=== PATIENT | female | born 1985 | race Asian ===

== ENCOUNTER 2016-03-26 18:45 | Inpatient (IN) | payer MEDICAID ==
[~2016-03-26] VITALS: Ht 144.8 cm; Wt 60.0 kg
[2016-03-26 18:45] VITALS: BP 139/94
[~2016-03-26 18:45] MED LIST: IBUP-2070 PO; LURA40 PO; PREN90 PO
[2016-03-26] MEDS ORDERED: DEXTROSE 50%-WATER 25 GM/50 ML SYRINGE IVP PRN (21:00)
[2016-03-26] MEDS: DiphenhydrAMINE HCL 25 MG CAPSULE PO SCH (21:53)
[2016-03-26] MEDS: LURASIDONE HCL 40 MG TABLET PO SCH (21:53)
[2016-03-26] MEDS ORDERED: ChlorproMAZINE HCL 100 MG TABLET PO PRN (23:45)
[2016-03-26] MEDS ORDERED: LORazepam 2 MG TABLET PO PRN (23:45)
[2016-03-26] MEDS ORDERED: ZOLPIDEM TARTRATE 5 MG TABLET PO PRN (23:45)
[2016-03-27 07:18] LABS: BASOPHILS # (AUTO) 0.04 K/uL (0.00-0.20); BASOPHILS % (AUTO) 0.3 % (0.0-2.0); EOSINOPHILS # (AUTO) 0.41 K/uL (0.00-0.70); EOSINOPHILS % (AUTO) 3.14 % (1.0-6.0); HEMATOCRIT 30.8 % (36-46); HEMOGLOBIN 9.9 g/dL (12.0-16.0); LYMPHOCYTES # (AUTO) 1.7 K/uL (1.0-4.8); LYMPHOCYTES % (AUTO) 13.1 % (22.0-44.0); MEAN CORPUSCULAR HEMOGLOBIN 23.5 pg (26.0-34.0); MEAN CORPUSCULAR VOLUME 73 fL (80-100); MONOCYTES # (AUTO) 0.7 K/uL (0.1-1.0); MONOCYTES % (AUTO) 5.2 % (2.0-9.0); NEUTROPHILS # (AUTO) 10.2 K/uL (1.8-7.7); NEUTROPHILS % (AUTO) 78.2 % (40.0-70.0); PLATELET COUNT (AUTO) 228 K/uL (150-450); RED CELL DISTRIBUTION WIDTH 14.8 % (11.5-14.5)
[2016-03-27 07:25] LABS: RBC MORPHOLOGY COMMENT ABNORMAL RBC MORPH
[2016-03-27 07:31] LABS: ALANINE AMINOTRANSFERASE 21 U/L (12-78); ANION GAP 8 mmol/L (8-16); ASPARTATE AMINOTRANSFERASE 20 U/L (15-37); CARBON DIOXIDE 26 mmol/L (22-29); CHLORIDE 105 mmol/L (98-107); GLOMERULAR FILTR. RATE CALC > 60 mL/min (>60); SODIUM SERUM 139 mmol/L (136-145); UREA NITROGEN, BLOOD 5 mg/dL (7-18)
[2016-03-27 07:45] LABS: BILIRUBIN,TOTAL 0.1 mg/dL (0.1-1.0)
[2016-03-27] MEDS: LURASIDONE HCL 40 MG TABLET PO SCH ×2 (08:18→20:09)
[2016-03-27 13:03] VITALS: BP 120/94
[2016-03-27 15:36] LABS: GLUCOSE,POINT OF CARE 93 MG/DL (70-110)
[2016-03-27] MEDS ORDERED: ACETAMINOPHEN 325 MG TABLET PO PRN (17:15)
[2016-03-27] MEDS ORDERED: IBUPROFEN 600 MG TABLET PO PRN (17:15)
[2016-03-27] MEDS: DiphenhydrAMINE HCL 25 MG CAPSULE PO SCH (20:09)
[2016-03-27 22:10] VITALS: BP 118/81
[2016-03-28 05:26] LABS: GLUCOSE,POINT OF CARE 147 MG/DL (70-110)
[2016-03-28 05:48] VITALS: BP 126/89
[2016-03-28] MEDS: LURASIDONE HCL 40 MG TABLET PO SCH ×2 (06:35→21:41)
[2016-03-28] MEDS: INSULIN ASPART 100 UNITS/ML SQ PRN (06:47)
[2016-03-28 08:00] VITALS: BP 140/73
[2016-03-28 11:00] VITALS: BP 132/72
[2016-03-28 17:16] VITALS: BP 131/79
[2016-03-28 17:37] LABS: GLUCOSE,POINT OF CARE 140 MG/DL (70-110)
[2016-03-28] MEDS: DiphenhydrAMINE HCL 25 MG CAPSULE PO SCH (21:41)
[2016-03-29 05:36] LABS: GLUCOSE,POINT OF CARE 107 MG/DL (70-110)
[2016-03-29] MEDS: INSULIN ASPART 100 UNITS/ML SQ PRN (06:35)
[2016-03-29] MEDS: LURASIDONE HCL 40 MG TABLET PO SCH ×2 (06:53→21:00)
[2016-03-29 08:20] VITALS: BP 137/86
[2016-03-29 16:52] LABS: GLUCOSE COMMENT 1 Received Meds; GLUCOSE,POINT OF CARE 135 MG/DL (70-110)
[2016-03-29 19:01] VITALS: BP 133/79
[2016-03-29] MEDS: DiphenhydrAMINE HCL 25 MG CAPSULE PO SCH (21:00)
[2016-03-30 05:36] LABS: GLUCOSE,POINT OF CARE 100 MG/DL (70-110)
[2016-03-30] MEDS: LURASIDONE HCL 40 MG TABLET PO SCH ×2 (07:02→21:20)
[2016-03-30] MEDS: INSULIN ASPART 100 UNITS/ML SQ PRN ×2 (07:03→17:40)
[2016-03-30 08:07] VITALS: BP 145/87
[2016-03-30 16:10] VITALS: BP 144/94
[2016-03-30] MEDS: DiphenhydrAMINE HCL 25 MG CAPSULE PO SCH (21:20)
[2016-03-31 05:21] LABS: GLUCOSE,POINT OF CARE 137 MG/DL (70-110)
[2016-03-31] MEDS: LURASIDONE HCL 40 MG TABLET PO SCH ×2 (06:33→20:40)
[2016-03-31 12:56] VITALS: BP 145/91
[2016-03-31] MEDS: INSULIN ASPART 100 UNITS/ML SQ PRN (17:30)
[2016-03-31 18:39] VITALS: BP 145/92
[2016-03-31] MEDS: DiphenhydrAMINE HCL 25 MG CAPSULE PO SCH (20:40)
[2016-04-01 05:47] LABS: GLUCOSE,POINT OF CARE 98 MG/DL (70-110)
[2016-04-01] MEDS: LURASIDONE HCL 40 MG TABLET PO SCH ×2 (06:32→21:09)
[2016-04-01 10:27] VITALS: BP 117/75
[2016-04-01 16:51] LABS: GLUCOSE,POINT OF CARE 106 MG/DL (70-110)
[2016-04-01 17:20] VITALS: BP 132/64
[2016-04-01] MEDS: DiphenhydrAMINE HCL 25 MG CAPSULE PO SCH (21:09)
[2016-04-02 05:36] LABS: GLUCOSE,POINT OF CARE 97 MG/DL (70-110)
[2016-04-02] MEDS: LURASIDONE HCL 40 MG TABLET PO SCH ×2 (06:56→20:20)
[2016-04-02] MEDS: INSULIN ASPART 100 UNITS/ML SQ PRN (06:56)
[2016-04-02 12:22] LABS: GLUCOSE,POINT OF CARE 156 MG/DL (70-110)
[2016-04-02 12:22] LABS: GLUCOSE,POINT OF CARE 146 MG/DL (70-110)
[2016-04-02 12:28] LABS: GLUCOSE,POINT OF CARE 117 MG/DL (70-110)
[2016-04-02 17:19] VITALS: BP 129/84
[2016-04-02 17:26] LABS: GLUCOSE,POINT OF CARE 100 MG/DL (70-110)
[2016-04-02] MEDS: DiphenhydrAMINE HCL 25 MG CAPSULE PO SCH (20:20)
[2016-04-03 05:32] LABS: GLUCOSE,POINT OF CARE 112 MG/DL (70-110)
[2016-04-03] MEDS: LURASIDONE HCL 40 MG TABLET PO SCH ×2 (06:52→21:02)
[2016-04-03] MEDS: INSULIN ASPART 100 UNITS/ML SQ PRN (06:56)
[2016-04-03 07:10] VITALS: BP 124/76
[2016-04-03 08:00] VITALS: BP 130/88
[2016-04-03 16:53] VITALS: BP 125/85
[2016-04-03 17:02] LABS: GLUCOSE,POINT OF CARE 150 MG/DL (70-110)
[2016-04-03] MEDS: DiphenhydrAMINE HCL 25 MG CAPSULE PO SCH (21:02)
[2016-04-04] MEDS: LURASIDONE HCL 40 MG TABLET PO SCH ×2 (06:26→20:08)
[2016-04-04 07:16] VITALS: BP 117/76
[2016-04-04 08:05] VITALS: BP 109/79
[2016-04-04 18:03] VITALS: BP 131/76
[2016-04-04] MEDS: DiphenhydrAMINE HCL 25 MG CAPSULE PO SCH (20:08)
[2016-04-05] MEDS: LURASIDONE HCL 40 MG TABLET PO SCH ×2 (06:55→20:31)
[2016-04-05 08:00] VITALS: BP 131/96
[2016-04-05 16:59] VITALS: BP 132/73
[2016-04-05] MEDS: DiphenhydrAMINE HCL 25 MG CAPSULE PO SCH (20:32)
[2016-04-06] MEDS: LURASIDONE HCL 40 MG TABLET PO SCH ×2 (06:42→20:27)
[2016-04-06 16:58] VITALS: BP 112/71
[2016-04-06] MEDS: DiphenhydrAMINE HCL 25 MG CAPSULE PO SCH (20:27)
[2016-04-07] MEDS: LURASIDONE HCL 40 MG TABLET PO SCH ×2 (06:40→20:33)
[2016-04-07 08:30] VITALS: BP 133/103
[2016-04-07 17:15] VITALS: BP 135/76
[2016-04-07] MEDS: DiphenhydrAMINE HCL 25 MG CAPSULE PO SCH (20:33)
[2016-04-08] MEDS: LURASIDONE HCL 40 MG TABLET PO SCH ×2 (06:35→20:22)
[2016-04-08 08:00] VITALS: BP 121/69
[2016-04-08] MEDS: DiphenhydrAMINE HCL 25 MG CAPSULE PO SCH (20:22)
[2016-04-09] MEDS: LURASIDONE HCL 40 MG TABLET PO SCH ×2 (06:34→20:14)
[2016-04-09 08:05] VITALS: BP 116/57
[2016-04-09 17:41] VITALS: BP 125/77
[2016-04-09] MEDS: DiphenhydrAMINE HCL 25 MG CAPSULE PO SCH (20:14)
[2016-04-10] MEDS: LURASIDONE HCL 40 MG TABLET PO SCH ×2 (06:55→20:26)
[2016-04-10 08:05] VITALS: BP 128/96
[2016-04-10 16:23] VITALS: BP 123/83
[2016-04-10] MEDS: DiphenhydrAMINE HCL 25 MG CAPSULE PO SCH (20:25)
[2016-04-11] MEDS: LURASIDONE HCL 40 MG TABLET PO SCH ×2 (06:55→20:24)
[2016-04-11 10:06] VITALS: BP 128/86
[2016-04-11 17:22] VITALS: BP 128/86
[2016-04-11] MEDS: DiphenhydrAMINE HCL 25 MG CAPSULE PO SCH (20:24)
[2016-04-12] MEDS: LURASIDONE HCL 40 MG TABLET PO SCH ×2 (06:40→20:19)
[2016-04-12 08:05] VITALS: BP 120/78
[2016-04-12 16:40] VITALS: BP 129/89
[2016-04-12] MEDS: DiphenhydrAMINE HCL 25 MG CAPSULE PO SCH (20:18)
[2016-04-13] MEDS: LURASIDONE HCL 40 MG TABLET PO SCH ×2 (06:51→20:57)
[2016-04-13 08:00] VITALS: BP 131/69
[2016-04-13 16:22] VITALS: BP 121/75
[2016-04-13] MEDS: DiphenhydrAMINE HCL 25 MG CAPSULE PO SCH (20:56)
[2016-04-14] MEDS: LURASIDONE HCL 80 MG TABLET PO SCH ×2 (07:02→21:52)
[2016-04-14 08:00] VITALS: BP 128/97
[2016-04-14 17:13] VITALS: BP 139/72
[2016-04-14] MEDS: DiphenhydrAMINE HCL 25 MG CAPSULE PO SCH (21:52)
[2016-04-15] MEDS: LURASIDONE HCL 80 MG TABLET PO SCH ×2 (06:56→20:24)
[2016-04-15 08:44] VITALS: BP 121/72
[2016-04-15 17:10] VITALS: BP 132/76
[2016-04-15] MEDS: DiphenhydrAMINE HCL 25 MG CAPSULE PO SCH (20:23)
[2016-04-16] MEDS: LURASIDONE HCL 80 MG TABLET PO SCH ×2 (06:37→20:25)
[2016-04-16 08:05] VITALS: BP 109/54
[2016-04-16 16:32] VITALS: BP 115/69
[2016-04-16] MEDS: DiphenhydrAMINE HCL 25 MG CAPSULE PO SCH (20:25)
[2016-04-17] MEDS: LURASIDONE HCL 80 MG TABLET PO SCH ×2 (06:37→20:22)
[2016-04-17 08:07] VITALS: BP 110/65
[2016-04-17 16:19] VITALS: BP 126/79
[2016-04-17] MEDS: DiphenhydrAMINE HCL 25 MG CAPSULE PO SCH (20:21)
[2016-04-18] MEDS: LURASIDONE HCL 80 MG TABLET PO SCH ×2 (06:38→20:24)
[2016-04-18 08:07] VITALS: BP 123/85
[2016-04-18 16:00] VITALS: BP 141/95
[2016-04-18] MEDS: DiphenhydrAMINE HCL 25 MG CAPSULE PO SCH (20:24)
[2016-04-19] MEDS: LURASIDONE HCL 80 MG TABLET PO SCH (06:34)
[2016-04-19 08:00] VITALS: BP 121/79
[2016-04-19 16:21] VITALS: BP 101/58
[2016-04-19] MEDS: DiphenhydrAMINE HCL 25 MG CAPSULE PO SCH (21:32)
[2016-04-20] MEDS: LURASIDONE HCL 80 MG TABLET PO SCH ×2 (06:43→20:33)
[2016-04-20 08:00] VITALS: BP 120/81
[2016-04-20 17:35] VITALS: BP 126/81
[2016-04-20] MEDS: DiphenhydrAMINE HCL 25 MG CAPSULE PO SCH (20:32)
[2016-04-21] MEDS: LURASIDONE HCL 80 MG TABLET PO SCH ×2 (06:48→20:57)
[2016-04-21 08:00] VITALS: BP 115/72
[2016-04-21 16:28] VITALS: BP 128/79
[2016-04-21] MEDS: DiphenhydrAMINE HCL 25 MG CAPSULE PO SCH (20:56)
[2016-04-22] MEDS: LURASIDONE HCL 80 MG TABLET PO SCH ×2 (06:45→20:47)
[2016-04-22 09:58] VITALS: BP 122/76
[2016-04-22 16:37] VITALS: BP 145/89
[2016-04-22] MEDS: DiphenhydrAMINE HCL 25 MG CAPSULE PO SCH (20:47)
[2016-04-23] MEDS: LURASIDONE HCL 80 MG TABLET PO SCH ×2 (06:42→20:29)
[2016-04-23 08:07] VITALS: BP 134/85
[2016-04-23 19:42] VITALS: BP 132/85
[2016-04-23] MEDS: DiphenhydrAMINE HCL 25 MG CAPSULE PO SCH (20:29)
[2016-04-24] MEDS: LURASIDONE HCL 80 MG TABLET PO SCH ×2 (06:39→20:54)
[2016-04-24 09:43] VITALS: BP 121/68
[2016-04-24 10:44] VITALS: BP 122/73
[2016-04-24 17:12] VITALS: BP 138/94
[2016-04-24] MEDS: DiphenhydrAMINE HCL 25 MG CAPSULE PO SCH (20:54)
[2016-04-25 06:46] LABS: BASOPHILS % (AUTO) 0.4 % (0.0-2.0); EOSINOPHILS % (AUTO) 2.4 % (1.0-6.0); HEMATOCRIT 35.4 % (36-46); HEMOGLOBIN 10.8 g/dL (12.0-16.0); LYMPHOCYTES # (AUTO) 2.3 K/uL (1.0-4.8); LYMPHOCYTES % (AUTO) 26.6 % (22.0-44.0); MEAN CORPUSCULAR HEMOGLOBIN 22.2 pg (26.0-34.0); MEAN CORPUSCULAR HGB CONC 30.6 G/dL (31.0-37.0); MEAN CORPUSCULAR VOLUME 73 fL (80-100); MONOCYTES # (AUTO) 0.5 K/uL (0.1-1.0); MONOCYTES % (AUTO) 6.2 % (2.0-9.0); NEUTROPHILS # (AUTO) 5.5 K/uL (1.8-7.7); NEUTROPHILS % (AUTO) 64.4 % (40.0-70.0); PLATELET COUNT (AUTO) 383 K/uL (150-450); RED BLOOD CELL COUNT(AUTO) 4.87 MIL/uL (4.00-5.20); RED CELL DISTRIBUTION WIDTH 13.4 % (11.5-14.5); WHITE BLOOD COUNT (AUTO) 8.5 K/uL (4.5-11.0)
[2016-04-25] MEDS: LURASIDONE HCL 80 MG TABLET PO SCH ×2 (07:01→20:28)
[2016-04-25 08:31] LABS: RBC MORPHOLOGY COMMENT ABNORMAL RBC MORPH
[2016-04-25 10:19] VITALS: BP 124/80
[2016-04-25 17:06] VITALS: BP 121/72
[2016-04-25] MEDS: DiphenhydrAMINE HCL 25 MG CAPSULE PO SCH (20:28)
[2016-04-26 06:25] VITALS: BP 118/79
[2016-04-26] MEDS: LURASIDONE HCL 80 MG TABLET PO SCH ×2 (07:08→20:10)
[2016-04-26 08:00] VITALS: BP 135/83
[2016-04-26 16:00] VITALS: BP 136/89
[2016-04-26] MEDS: DiphenhydrAMINE HCL 25 MG CAPSULE PO SCH (20:11)
[2016-04-27] MEDS: LURASIDONE HCL 80 MG TABLET PO SCH ×2 (06:55→20:26)
[2016-04-27 10:02] VITALS: BP 123/80
[2016-04-27 16:00] VITALS: BP 133/87
[2016-04-27] MEDS: DiphenhydrAMINE HCL 25 MG CAPSULE PO SCH (20:26)
[2016-04-28] MEDS: LURASIDONE HCL 80 MG TABLET PO SCH ×2 (06:34→20:53)
[2016-04-28 08:00] VITALS: BP 137/78
[2016-04-28 16:23] VITALS: BP 135/82
[2016-04-28] MEDS: DiphenhydrAMINE HCL 25 MG CAPSULE PO SCH (20:53)
[2016-04-29 06:28] VITALS: BP 129/78
[2016-04-29] MEDS: LURASIDONE HCL 80 MG TABLET PO SCH ×2 (07:03→21:30)
[2016-04-29 08:33] VITALS: BP 123/68
[2016-04-29 20:18] VITALS: BP 121/75
[2016-04-29] MEDS: DiphenhydrAMINE HCL 25 MG CAPSULE PO SCH (21:30)
[2016-04-30 02:39] VITALS: BP 132/75
[2016-04-30] MEDS: LURASIDONE HCL 80 MG TABLET PO SCH ×2 (06:56→20:10)
[2016-04-30 08:00] VITALS: BP 132/85
[2016-04-30] MEDS ORDERED: DEPOP150I IM (14:38)
[2016-04-30] MEDS ORDERED: DIPH50 PO (14:38)
[2016-04-30] MEDS ORDERED: LURA80 PO ×2 (14:38)
[2016-04-30 16:59] VITALS: BP 126/77
[2016-04-30] MEDS: DiphenhydrAMINE HCL 25 MG CAPSULE PO SCH (20:10)
[2016-05-01] MEDS: LURASIDONE HCL 80 MG TABLET PO SCH (06:52)
[2016-05-01 08:30] VITALS: BP 123/71
== END 2016-05-01 12:10 | disposition home or self-care (01) | DRG 750 ==
LOC: 3EI 18:45
PROVIDERS: ADMIT Psychiatry & Neurology Psychiatry; ATTEND Psychiatry & Neurology Psychiatry
DX: F20.0 Paranoid schizophrenia (principal); O24.13 Pre-existing type 2 diabetes mellitus, in the puerperium; E11.9 Type 2 diabetes mellitus without complications; F79 Unspecified intellectual disabilities; F12.90 Cannabis use, unspecified, uncomplicated; D64.9 Anemia, unspecified; O90.81 Anemia of the puerperium; R03.0 Elevated blood-pressure reading, without diagnosis of hypertension; G47.00 Insomnia, unspecified; Z91.14 Patient's other noncompliance with medication regimen
CPT/HCPCS: 82962; 87081; J1050

== ENCOUNTER 2018-05-21 14:31 | Inpatient (IN) | payer MEDICAID, OTHER ==
[~2018-05-21] VITALS: Ht 152.4 cm; Wt 55.2 kg
[~2018-05-21 14:31] MED LIST changes: +DEPOP150I IM; +DIPH50 PO; -IBUP-2070 PO; -LURA40 PO; +LURA80 PO; -PREN90 PO
[2018-05-21 16:23] LABS: BASOPHILS % (AUTO) 0.7 % (0.0-2.0); EOSINOPHILS % (AUTO) 0.2 % (1.0-6.0); HEMATOCRIT 44.5 % (36-46); HEMOGLOBIN 14.2 g/dL (12.0-16.0); LYMPHOCYTES # (AUTO) 1.6 K/uL (1.0-4.8); LYMPHOCYTES % (AUTO) 9.3 % (22.0-44.0); MEAN CORPUSCULAR HGB CONC 31.9 G/dL (31.0-37.0); MEAN CORPUSCULAR VOLUME 69 fL (80-100); MONOCYTES # (AUTO) 0.7 K/uL (0.1-1.0); MONOCYTES % (AUTO) 3.8 % (2.0-9.0); NEUTROPHILS # (AUTO) 14.8 K/uL (1.8-7.7); PLATELET COUNT (AUTO) 343 K/uL (150-450); RED BLOOD CELL COUNT(AUTO) 6.44 MIL/uL (4.00-5.20); RED CELL DISTRIBUTION WIDTH 13.8 % (11.5-14.5)
[2018-05-21 16:24] LABS: ANION GAP 16 mmol/L (8-16); CALCIUM, TOTAL 9.3 mg/dL (8.8-10.5); CARBON DIOXIDE 21 mmol/L (22-29); CHLORIDE 95 mmol/L (98-107); CREATININE 0.78 mg/dL (0.60-1.30); GLOMERULAR FILTR. RATE CALC > 60 mL/min (>60); GLUCOSE,RANDOM 307 mg/dL (70-110); SODIUM SERUM 132 mmol/L (136-145); UREA NITROGEN, BLOOD 9 mg/dL (7-18)
[2018-05-21] MEDS ORDERED: HALO5I IM (16:26)
[2018-05-21 16:32] LABS: ALANINE AMINOTRANSFERASE 16 U/L (12-78); ALBUMIN 3.7 g/dL (3.4-5.0); ALKALINE PHOSPHATASE 112 U/L (46-116); ASPARTATE AMINOTRANSFERASE 12 U/L (15-37); BILIRUBIN,TOTAL 0.3 mg/dL (0.1-1.0); TOTAL PROTEIN, SERUM 7.9 g/dL (6.4-8.2)
[2018-05-21 16:33] LABS: AMPHET/METH SCREEN,URINE NEGATIVE (NEGATIVE); BARBITURATE SCREEN, URINE NEGATIVE (NEGATIVE); BENZODIAZEPINES SCREEN,URINE NEGATIVE (NEGATIVE); CANNABINOID SCREEN,URINE NEGATIVE (NEGATIVE); COCAINE SCREEN,URINE NEGATIVE (NEGATIVE); METHADONE SCREEN, URINE NEGATIVE (NEGATIVE); OPIATE SCREEN,URINE NEGATIVE (NEGATIVE)
[2018-05-21 16:34] LABS: PHENCYCLIDINE SCREEN,URINE NEGATIVE (NEGATIVE)
[2018-05-21] MEDS ORDERED: BACITRACIN 0.9 GM PACKET OINTMENT TP ONE (19:15)
[2018-05-21] MEDS ORDERED: AMOX TR/POT CLAV 875 MG/125 MG TABLET PO ONE (19:15)
[2018-05-21] MEDS ORDERED: BACITRACIN/POLYMYXIN B 15 GM OINTMENT TP ONE (19:15)
[2018-05-21] MEDS ORDERED: LORazepam 2 MG TABLET PO PRN (19:45)
[2018-05-21] MEDS ORDERED: ChlorproMAZINE HCL 100 MG TABLET PO PRN (19:45)
[2018-05-21 20:30] LABS: HCG,QUANTITATIVE < 1 mIU/mL (0-6)
[2018-05-21] MEDS: DiphenhydrAMINE HCL 25 MG CAPSULE PO SCH (21:23)
[2018-05-21] MEDS: HALOPERIDOL 5 MG TABLET PO SCH (21:23)
[2018-05-21 23:36] VITALS: BP 109/69
[2018-05-21 23:54] LABS: GLUCOSE,POINT OF CARE 314 MG/DL (70-110)
[2018-05-22] MEDS ORDERED: PNEUMOCOCCAL VACCINE POLYVALENT 0.5 ML VIAL [PPSV23] IM ONE (01:00)
[2018-05-22 05:19] LABS: GLUCOSE,POINT OF CARE 299 MG/DL (70-110)
[2018-05-22 05:52] LABS: HEMOGLOBIN A1C 10.8 % (4.5-6.2)
[2018-05-22 06:15] LABS: FREE T4 (FREE THYROXINE) 1.15 ng/dL (0.76-1.46); THYROID STIMULATING HORMONE 2.71 uIU/mL (0.36-3.74)
[2018-05-22] MEDS ORDERED: DEXTROSE 50%-WATER 25 GM/50 ML SYRINGE IVP PRN (06:30)
[2018-05-22] MEDS: INSULIN LISPRO 100 UNITS/ML SQ PRN ×4 (06:46→21:15)
[2018-05-22 08:45] VITALS: BP 104/68
[2018-05-22] MEDS ORDERED: CloNIDine HCL 0.1 MG TABLET PO PRN (09:15)
[2018-05-22] MEDS ORDERED: ALBUTEROL SULFATE HFA 90 MCG/PUFF 8 GM INHALER IH PRN (09:15)
[2018-05-22] MEDS ORDERED: ACETAMINOPHEN 325 MG TABLET PO PRN (09:15)
[2018-05-22] MEDS ORDERED: PETROLATUM,WHITE 71 GM JELLY TP PRN (09:15)
[2018-05-22] MEDS ORDERED: MAGNESIUM HYDROXIDE SUSPENSION 30 ML UDCUP PO PRN (09:15)
[2018-05-22] MEDS ORDERED: ONDANSETRON HCL 4 MG TABLET PO PRN (09:15)
[2018-05-22] MEDS ORDERED: LOPERAMIDE HCL 2 MG CAPSULE PO PRN (09:15)
[2018-05-22] MEDS ORDERED: MAG HYDROX/AL HYDROX/SIMETH ES 30 ML SUSPENSION UDCUP PO PRN (09:15)
[2018-05-22] MEDS ORDERED: BENZOCAINE/MENTHOL LOZENGE MM PRN (09:15)
[2018-05-22 11:39] LABS: GLUCOSE,POINT OF CARE 338 MG/DL (70-110)
[2018-05-22 17:49] LABS: GLUCOMETER DEV NAME(LOC) AHU.; GLUCOSE,POINT OF CARE 412 MG/DL (70-110)
[2018-05-22 19:16] VITALS: BP 110/73
[2018-05-22] MEDS ORDERED: INSULIN LISPRO 100 UNITS/ML SQ ONE (19:45)
[2018-05-22] MEDS ORDERED: HALO100V4 IM (19:49)
[2018-05-22] MEDS ORDERED: DIPH25 PO (19:49)
[2018-05-22] MEDS: HALOPERIDOL 5 MG TABLET PO SCH (21:08)
[2018-05-22] MEDS: DiphenhydrAMINE HCL 25 MG CAPSULE PO SCH (21:09)
[2018-05-22 21:19] LABS: GLUCOMETER DEV NAME(LOC) 3EX.; GLUCOSE,POINT OF CARE 317 MG/DL (70-110)
[2018-05-23 00:10] VITALS: BP 122/73
[2018-05-23 05:39] LABS: GLUCOMETER DEV NAME(LOC) 3EX.; GLUCOSE,POINT OF CARE 294 MG/DL (70-110)
[2018-05-23] MEDS: INSULIN LISPRO 100 UNITS/ML SQ PRN ×4 (06:52→21:08)
[2018-05-23] MEDS: DOCUSATE SODIUM 100 MG CAPSULE PO SCH (08:35)
[2018-05-23] MEDS: OMEPRAZOLE 20 MG CAPSULE PO SCH (08:35)
[2018-05-23 09:39] VITALS: BP 116/68
[2018-05-23 11:54] LABS: GLUCOMETER DEV NAME(LOC) 3EX.; GLUCOSE,POINT OF CARE 360 MG/DL (70-110)
[2018-05-23 16:24] LABS: GLUCOMETER DEV NAME(LOC) 3EX.; GLUCOSE,POINT OF CARE 346 MG/DL (70-110)
[2018-05-23 16:27] VITALS: BP 121/67
[2018-05-23] MEDS ORDERED: MetFORMIN HCL 500 MG TABLET PO SCH (17:30)
[2018-05-23] MEDS: HALOPERIDOL 5 MG TABLET PO SCH (20:47)
[2018-05-23] MEDS: DiphenhydrAMINE HCL 25 MG CAPSULE PO SCH (20:47)
[2018-05-23] MEDS: ZOLPIDEM TARTRATE 5 MG TABLET PO PRN (20:47)
[2018-05-23 21:39] LABS: GLUCOMETER DEV NAME(LOC) 3EX.; GLUCOSE,POINT OF CARE 299 MG/DL (70-110)
[2018-05-24] MEDS: CEPHALEXIN MONOHYDRATE 500 MG CAPSULE PO SCH ×3 (00:18→16:15)
[2018-05-24] MEDS: INSULIN LISPRO 100 UNITS/ML SQ PRN ×4 (06:06→21:25)
[2018-05-24 06:09] LABS: GLUCOMETER DEV NAME(LOC) 3EX.; GLUCOSE,POINT OF CARE 293 MG/DL (70-110)
[2018-05-24] MEDS: MetFORMIN HCL 500 MG TABLET PO SCH ×2 (06:35→17:36)
[2018-05-24 09:38] VITALS: BP 110/72
[2018-05-24] MEDS: DOCUSATE SODIUM 100 MG CAPSULE PO SCH (10:00)
[2018-05-24] MEDS: OMEPRAZOLE 20 MG CAPSULE PO SCH (10:00)
[2018-05-24 11:33] LABS: GLUCOMETER DEV NAME(LOC) 3EX.; GLUCOSE,POINT OF CARE 237 MG/DL (70-110)
[2018-05-24 16:24] LABS: GLUCOMETER DEV NAME(LOC) 3EX.; GLUCOSE,POINT OF CARE 220 MG/DL (70-110)
[2018-05-24 17:38] VITALS: BP 120/71
[2018-05-24 20:19] LABS: GLUCOMETER DEV NAME(LOC) 3EX.; GLUCOSE,POINT OF CARE 214 MG/DL (70-110)
[2018-05-24] MEDS: DiphenhydrAMINE HCL 25 MG CAPSULE PO SCH (21:15)
[2018-05-24] MEDS: HALOPERIDOL 5 MG TABLET PO SCH (21:16)
[2018-05-24] MEDS: ZOLPIDEM TARTRATE 5 MG TABLET PO PRN (21:34)
[2018-05-25] MEDS: CEPHALEXIN MONOHYDRATE 500 MG CAPSULE PO SCH ×3 (00:07→16:10)
[2018-05-25 05:50] LABS: GLUCOMETER DEV NAME(LOC) 3E.I; GLUCOSE,POINT OF CARE 225 MG/DL (70-110)
[2018-05-25] MEDS: MetFORMIN HCL 500 MG TABLET PO SCH ×2 (06:58→17:29)
[2018-05-25] MEDS: INSULIN LISPRO 100 UNITS/ML SQ PRN ×3 (07:01→17:03)
[2018-05-25] MEDS: OMEPRAZOLE 20 MG CAPSULE PO SCH (08:56)
[2018-05-25] MEDS: DOCUSATE SODIUM 100 MG CAPSULE PO SCH (08:56)
[2018-05-25] MEDS ORDERED: MULTIVITAMINS, THERAPEUTIC TABLET PO SCH (09:00)
[2018-05-25] MEDS ORDERED: HALOPERIDOL DECANOATE 50 MG/ML VIAL IM SCH (09:00)
[2018-05-25 10:26] LABS: HEMATOCRIT 42.3 % (36-46); HEMOGLOBIN 13.4 g/dL (12.0-16.0); MEAN CORPUSCULAR HGB CONC 31.8 G/dL (31.0-37.0); MEAN CORPUSCULAR VOLUME 69 fL (80-100); PLATELET COUNT (AUTO) 287 K/uL (150-450); RED BLOOD CELL COUNT(AUTO) 6.09 MIL/uL (4.00-5.20); RED CELL DISTRIBUTION WIDTH 13.9 % (11.5-14.5)
[2018-05-25 10:47] LABS: ANION GAP 11 mmol/L (8-16); CALCIUM, TOTAL 9.5 mg/dL (8.8-10.5); CARBON DIOXIDE 26 mmol/L (22-29); CHLORIDE 95 mmol/L (98-107); CREATININE 0.59 mg/dL (0.60-1.30); GLOMERULAR FILTR. RATE CALC > 60 mL/min (>60); GLUCOSE,RANDOM 217 mg/dL (70-110); PHOSPHORUS 4.8 mg/dL (2.5-4.9); POTASSIUM 4.8 mmol/L (3.5-5.1); SODIUM SERUM 132 mmol/L (136-145); UREA NITROGEN, BLOOD 13 mg/dL (7-18)
[2018-05-25 11:00] VITALS: BP 115/75
[2018-05-25 11:24] LABS: GLUCOMETER DEV NAME(LOC) 3E.I; GLUCOSE,POINT OF CARE 195 MG/DL (70-110)
[2018-05-25 11:40] LABS: BAND NEUTROPHILS % (MANUAL) 2 % (0-5); EOSINOPHILS % (MANUAL) 2 % (1-6); LYMPHOCYTES % (MANUAL) 25 % (22-44); MONOCYTES % (MANUAL) 5 % (2-9); SEGMENTED NEUTROPHILS % 66 % (40-70)
[2018-05-25] MEDS: GlipiZIDE 10 MG TABLET PO SCH (16:10)
[2018-05-25] MEDS: SODIUM CHLORIDE 1 GM TABLET PO SCH (16:10)
[2018-05-25 16:39] LABS: GLUCOMETER DEV NAME(LOC) 3E.I; GLUCOSE,POINT OF CARE 200 MG/DL (70-110)
[2018-05-25 17:14] VITALS: BP 118/76
[2018-05-25] MEDS: DiphenhydrAMINE HCL 25 MG CAPSULE PO SCH (20:20)
[2018-05-25] MEDS: HALOPERIDOL 5 MG TABLET PO SCH (20:20)
[2018-05-25 20:39] LABS: GLUCOMETER DEV NAME(LOC) 3E.I; GLUCOSE,POINT OF CARE 128 MG/DL (70-110)
[2018-05-26] MEDS: CEPHALEXIN MONOHYDRATE 500 MG CAPSULE PO SCH ×4 (00:03→23:52)
[2018-05-26 06:20] LABS: GLUCOMETER DEV NAME(LOC) 3E.I; GLUCOSE,POINT OF CARE 155 MG/DL (70-110)
[2018-05-26] MEDS: INSULIN LISPRO 100 UNITS/ML SQ PRN ×4 (06:56→21:32)
[2018-05-26] MEDS: MetFORMIN HCL 500 MG TABLET PO SCH ×2 (06:57→17:00)
[2018-05-26] MEDS: GlipiZIDE 10 MG TABLET PO SCH ×2 (06:57→16:18)
[2018-05-26 08:30] VITALS: BP 110/66
[2018-05-26] MEDS: MULTIVITAMINS WITH IRON TABLET PO SCH (08:58)
[2018-05-26] MEDS: OMEPRAZOLE 20 MG CAPSULE PO SCH (08:58)
[2018-05-26] MEDS: DOCUSATE SODIUM 100 MG CAPSULE PO SCH (08:58)
[2018-05-26] MEDS: SODIUM CHLORIDE 1 GM TABLET PO SCH ×2 (08:58→16:18)
[2018-05-26 12:24] LABS: GLUCOMETER DEV NAME(LOC) 3E.I; GLUCOSE,POINT OF CARE 168 MG/DL (70-110)
[2018-05-26 16:14] VITALS: BP 146/90
[2018-05-26 16:49] LABS: GLUCOMETER DEV NAME(LOC) 3E.I; GLUCOSE,POINT OF CARE 300 MG/DL (70-110)
[2018-05-26] MEDS: DiphenhydrAMINE HCL 25 MG CAPSULE PO SCH (20:58)
[2018-05-26] MEDS ORDERED: HALOPERIDOL 10 MG TABLET PO SCH (21:00)
[2018-05-27 01:09] VITALS: BP 104/66
[2018-05-27] MEDS: INSULIN LISPRO 100 UNITS/ML SQ PRN ×3 (06:46→17:09)
[2018-05-27] MEDS: GlipiZIDE 10 MG TABLET PO SCH ×2 (06:48→16:18)
[2018-05-27] MEDS: MetFORMIN HCL 500 MG TABLET PO SCH ×2 (06:48→16:18)
[2018-05-27 07:52] LABS: ANION GAP 12 mmol/L (8-16); CALCIUM, TOTAL 9.3 mg/dL (8.8-10.5); CARBON DIOXIDE 24 mmol/L (22-29); CHLORIDE 101 mmol/L (98-107); CREATININE 0.78 mg/dL (0.60-1.30); GLOMERULAR FILTR. RATE CALC > 60 mL/min (>60); GLUCOSE,RANDOM 199 mg/dL (70-110); POTASSIUM 4.2 mmol/L (3.5-5.1); SODIUM SERUM 137 mmol/L (136-145); UREA NITROGEN, BLOOD 11 mg/dL (7-18)
[2018-05-27 08:30] VITALS: BP 114/61
[2018-05-27] MEDS: DOCUSATE SODIUM 100 MG CAPSULE PO SCH (08:46)
[2018-05-27] MEDS: SODIUM CHLORIDE 1 GM TABLET PO SCH (08:46)
[2018-05-27] MEDS: CEPHALEXIN MONOHYDRATE 500 MG CAPSULE PO SCH ×3 (08:46→23:58)
[2018-05-27] MEDS: OMEPRAZOLE 20 MG CAPSULE PO SCH (08:46)
[2018-05-27] MEDS: MULTIVITAMINS WITH IRON TABLET PO SCH (08:47)
[2018-05-27 09:39] LABS: GLUCOMETER DEV NAME(LOC) 3E.I; GLUCOSE,POINT OF CARE 195 MG/DL (70-110)
[2018-05-27 09:50] LABS: GLUCOMETER DEV NAME(LOC) 3E.I; GLUCOSE,POINT OF CARE 216 MG/DL (70-110)
[2018-05-27 11:05] LABS: GLUCOMETER DEV NAME(LOC) 3E.I; GLUCOSE,POINT OF CARE 236 MG/DL (70-110)
[2018-05-27 16:00] VITALS: BP 116/66
[2018-05-27 16:10] LABS: GLUCOMETER DEV NAME(LOC) 3E.I; GLUCOSE,POINT OF CARE 218 MG/DL (70-110)
[2018-05-27] MEDS: DiphenhydrAMINE HCL 25 MG CAPSULE PO SCH (20:11)
[2018-05-27 20:32] LABS: GLUCOMETER DEV NAME(LOC) 3E.I; GLUCOSE,POINT OF CARE 134 MG/DL (70-110)
[2018-05-27] MEDS ORDERED: HALOPERIDOL 10 MG TABLET PO SCH (21:00)
[2018-05-28 05:56] LABS: GLUCOMETER DEV NAME(LOC) 3E.I; GLUCOSE,POINT OF CARE 163 MG/DL (70-110)
[2018-05-28] MEDS: MetFORMIN HCL 500 MG TABLET PO SCH ×2 (07:02→16:57)
[2018-05-28] MEDS: GlipiZIDE 10 MG TABLET PO SCH ×2 (07:02→16:57)
[2018-05-28] MEDS: INSULIN LISPRO 100 UNITS/ML SQ PRN ×3 (07:13→22:05)
[2018-05-28 08:30] VITALS: BP 106/61
[2018-05-28] MEDS: MULTIVITAMINS WITH IRON TABLET PO SCH (08:34)
[2018-05-28] MEDS: DOCUSATE SODIUM 100 MG CAPSULE PO SCH (08:34)
[2018-05-28] MEDS: OMEPRAZOLE 20 MG CAPSULE PO SCH (08:34)
[2018-05-28] MEDS: CEPHALEXIN MONOHYDRATE 500 MG CAPSULE PO SCH ×3 (08:34→23:59)
[2018-05-28] MEDS: OMEGA-3/DHA/EPA/FISH OIL 1,000 MG CAPSULE PO SCH (08:34)
[2018-05-28 11:38] LABS: GLUCOMETER DEV NAME(LOC) 3E.I; GLUCOSE,POINT OF CARE 172 MG/DL (70-110)
[2018-05-28 12:16] VITALS: BP 108/64
[2018-05-28] MEDS: IBUPROFEN 600 MG TABLET PO PRN (12:16)
[2018-05-28 13:16] VITALS: BP 112/66
[2018-05-28 16:59] LABS: GLUCOMETER DEV NAME(LOC) 3E.I; GLUCOSE,POINT OF CARE 129 MG/DL (70-110)
[2018-05-28 17:01] VITALS: BP 114/78
[2018-05-28] MEDS: DiphenhydrAMINE HCL 25 MG CAPSULE PO SCH (21:22)
[2018-05-28] MEDS: HALOPERIDOL 10 MG TABLET PO SCH (21:22)
[2018-05-28 22:14] LABS: GLUCOMETER DEV NAME(LOC) 3E.I; GLUCOSE,POINT OF CARE 174 MG/DL (70-110)
[2018-05-29] MEDS: GlipiZIDE 10 MG TABLET PO SCH ×2 (06:55→16:10)
[2018-05-29] MEDS: MetFORMIN HCL 500 MG TABLET PO SCH ×2 (06:55→16:09)
[2018-05-29] MEDS: CEPHALEXIN MONOHYDRATE 500 MG CAPSULE PO SCH ×3 (09:53→23:34)
[2018-05-29] MEDS: DOCUSATE SODIUM 100 MG CAPSULE PO SCH (09:53)
[2018-05-29] MEDS: OMEGA-3/DHA/EPA/FISH OIL 1,000 MG CAPSULE PO SCH (09:53)
[2018-05-29] MEDS: MULTIVITAMINS WITH IRON TABLET PO SCH (09:53)
[2018-05-29] MEDS: OMEPRAZOLE 20 MG CAPSULE PO SCH (09:53)
[2018-05-29 11:28] LABS: GLUCOMETER DEV NAME(LOC) 3E.I; GLUCOSE,POINT OF CARE 185 MG/DL (70-110)
[2018-05-29] MEDS: INSULIN LISPRO 100 UNITS/ML SQ PRN ×3 (11:42→20:28)
[2018-05-29 14:30] VITALS: BP 116/75
[2018-05-29] MEDS: IBUPROFEN 600 MG TABLET PO PRN (14:36)
[2018-05-29 16:00] VITALS: BP 118/76
[2018-05-29 17:44] LABS: GLUCOMETER DEV NAME(LOC) 3E.I; GLUCOSE,POINT OF CARE 360 MG/DL (70-110)
[2018-05-29] MEDS: DiphenhydrAMINE HCL 25 MG CAPSULE PO SCH (20:23)
[2018-05-29] MEDS: HALOPERIDOL 10 MG TABLET PO SCH (20:23)
[2018-05-29 20:33] LABS: GLUCOMETER DEV NAME(LOC) 3E.I; GLUCOSE,POINT OF CARE 189 MG/DL (70-110)
[2018-05-30 06:04] LABS: GLUCOMETER DEV NAME(LOC) 3E.I; GLUCOSE,POINT OF CARE 201 MG/DL (70-110)
[2018-05-30] MEDS: GlipiZIDE 10 MG TABLET PO SCH ×2 (06:34→17:12)
[2018-05-30] MEDS: MetFORMIN HCL 500 MG TABLET PO SCH ×2 (06:34→17:12)
[2018-05-30] MEDS: INSULIN LISPRO 100 UNITS/ML SQ PRN ×4 (07:00→20:55)
[2018-05-30] MEDS: OMEGA-3/DHA/EPA/FISH OIL 1,000 MG CAPSULE PO SCH (09:29)
[2018-05-30] MEDS: DOCUSATE SODIUM 100 MG CAPSULE PO SCH (09:29)
[2018-05-30] MEDS: OMEPRAZOLE 20 MG CAPSULE PO SCH (09:29)
[2018-05-30] MEDS: CEPHALEXIN MONOHYDRATE 500 MG CAPSULE PO SCH ×2 (09:29→15:48)
[2018-05-30] MEDS: MULTIVITAMINS WITH IRON TABLET PO SCH (09:30)
[2018-05-30 11:29] LABS: GLUCOMETER DEV NAME(LOC) 3E.I; GLUCOSE,POINT OF CARE 174 MG/DL (70-110)
[2018-05-30] MEDS: IBUPROFEN 600 MG TABLET PO PRN (13:36)
[2018-05-30 16:24] LABS: GLUCOMETER DEV NAME(LOC) 3EX.; GLUCOSE,POINT OF CARE 230 MG/DL (70-110)
[2018-05-30 17:11] VITALS: BP 110/70
[2018-05-30] MEDS: HALOPERIDOL 10 MG TABLET PO SCH (20:10)
[2018-05-30] MEDS: DiphenhydrAMINE HCL 25 MG CAPSULE PO SCH (20:10)
[2018-05-30 20:59] LABS: GLUCOMETER DEV NAME(LOC) 3EX.; GLUCOSE,POINT OF CARE 193 MG/DL (70-110)
[2018-05-31 06:03] LABS: GLUCOMETER DEV NAME(LOC) 3EX.; GLUCOSE,POINT OF CARE 177 MG/DL (70-110)
[2018-05-31] MEDS: INSULIN LISPRO 100 UNITS/ML SQ PRN ×3 (06:37→21:08)
[2018-05-31] MEDS: GlipiZIDE 10 MG TABLET PO SCH ×2 (06:40→16:04)
[2018-05-31] MEDS: MetFORMIN HCL 500 MG TABLET PO SCH ×2 (06:40→16:04)
[2018-05-31] MEDS: MULTIVITAMINS WITH IRON TABLET PO SCH (09:23)
[2018-05-31] MEDS: OMEGA-3/DHA/EPA/FISH OIL 1,000 MG CAPSULE PO SCH (09:23)
[2018-05-31] MEDS: DOCUSATE SODIUM 100 MG CAPSULE PO SCH (09:24)
[2018-05-31] MEDS: OMEPRAZOLE 20 MG CAPSULE PO SCH (09:24)
[2018-05-31 11:29] LABS: GLUCOMETER DEV NAME(LOC) 3EX.; GLUCOSE,POINT OF CARE 89 MG/DL (70-110)
[2018-05-31 16:14] LABS: GLUCOMETER DEV NAME(LOC) 3EX.; GLUCOSE,POINT OF CARE 238 MG/DL (70-110)
[2018-05-31 16:50] VITALS: BP 127/81
[2018-05-31] MEDS: HALOPERIDOL 10 MG TABLET PO SCH (21:02)
[2018-05-31] MEDS: DiphenhydrAMINE HCL 25 MG CAPSULE PO SCH (21:02)
[2018-05-31 21:13] LABS: GLUCOMETER DEV NAME(LOC) 3EX.; GLUCOSE,POINT OF CARE 158 MG/DL (70-110)
[2018-06-01 06:04] LABS: GLUCOMETER DEV NAME(LOC) 3EX.; GLUCOSE,POINT OF CARE 163 MG/DL (70-110)
[2018-06-01] MEDS: GlipiZIDE 10 MG TABLET PO SCH ×2 (06:40→16:03)
[2018-06-01] MEDS: MetFORMIN HCL 500 MG TABLET PO SCH ×2 (06:40→16:03)
[2018-06-01] MEDS: INSULIN LISPRO 100 UNITS/ML SQ PRN ×3 (06:58→20:06)
[2018-06-01] MEDS: MULTIVITAMINS WITH IRON TABLET PO SCH (09:27)
[2018-06-01] MEDS: DOCUSATE SODIUM 100 MG CAPSULE PO SCH (09:27)
[2018-06-01] MEDS: OMEGA-3/DHA/EPA/FISH OIL 1,000 MG CAPSULE PO SCH (09:27)
[2018-06-01] MEDS: OMEPRAZOLE 20 MG CAPSULE PO SCH (09:27)
[2018-06-01 10:51] VITALS: BP 114/80
[2018-06-01] MEDS: IBUPROFEN 600 MG TABLET PO PRN (10:57)
[2018-06-01 11:28] LABS: GLUCOMETER DEV NAME(LOC) 3EX.; GLUCOSE,POINT OF CARE 103 MG/DL (70-110)
[2018-06-01 16:00] VITALS: BP 117/65
[2018-06-01 16:48] LABS: GLUCOMETER DEV NAME(LOC) 3EX.; GLUCOSE,POINT OF CARE 164 MG/DL (70-110)
[2018-06-01] MEDS: DiphenhydrAMINE HCL 25 MG CAPSULE PO SCH (20:04)
[2018-06-01] MEDS: HALOPERIDOL 10 MG TABLET PO SCH (20:04)
[2018-06-01 20:09] LABS: GLUCOMETER DEV NAME(LOC) 3EX.; GLUCOSE,POINT OF CARE 194 MG/DL (70-110)
[2018-06-02 06:19] LABS: GLUCOMETER DEV NAME(LOC) 3EX.; GLUCOSE,POINT OF CARE 165 MG/DL (70-110)
[2018-06-02] MEDS: GlipiZIDE 10 MG TABLET PO SCH ×2 (06:43→15:58)
[2018-06-02] MEDS: MetFORMIN HCL 500 MG TABLET PO SCH ×2 (06:43→15:58)
[2018-06-02] MEDS: INSULIN LISPRO 100 UNITS/ML SQ PRN ×4 (06:46→20:27)
[2018-06-02 08:00] VITALS: BP 118/85
[2018-06-02] MEDS: DOCUSATE SODIUM 100 MG CAPSULE PO SCH (09:03)
[2018-06-02] MEDS: OMEPRAZOLE 20 MG CAPSULE PO SCH (09:03)
[2018-06-02] MEDS: MULTIVITAMINS WITH IRON TABLET PO SCH (09:04)
[2018-06-02] MEDS: OMEGA-3/DHA/EPA/FISH OIL 1,000 MG CAPSULE PO SCH (09:04)
[2018-06-02 11:24] LABS: GLUCOMETER DEV NAME(LOC) 3EX.; GLUCOSE,POINT OF CARE 155 MG/DL (70-110)
[2018-06-02 16:00] VITALS: BP 111/67
[2018-06-02 16:23] LABS: GLUCOMETER DEV NAME(LOC) 3EX.; GLUCOSE,POINT OF CARE 275 MG/DL (70-110)
[2018-06-02 20:20] LABS: GLUCOMETER DEV NAME(LOC) 3EX.; GLUCOSE,POINT OF CARE 225 MG/DL (70-110)
[2018-06-02] MEDS: HALOPERIDOL 10 MG TABLET PO SCH (20:28)
[2018-06-02] MEDS: DiphenhydrAMINE HCL 25 MG CAPSULE PO SCH (20:28)
[2018-06-03 05:39] LABS: GLUCOMETER DEV NAME(LOC) 3EX.; GLUCOSE,POINT OF CARE 139 MG/DL (70-110)
[2018-06-03] MEDS: MetFORMIN HCL 500 MG TABLET PO SCH ×2 (06:59→16:19)
[2018-06-03] MEDS: GlipiZIDE 10 MG TABLET PO SCH ×2 (06:59→16:19)
[2018-06-03] MEDS: INSULIN LISPRO 100 UNITS/ML SQ PRN ×2 (07:10→17:30)
[2018-06-03 08:00] VITALS: BP 111/64
[2018-06-03] MEDS: OMEPRAZOLE 20 MG CAPSULE PO SCH (08:40)
[2018-06-03] MEDS: MULTIVITAMINS WITH IRON TABLET PO SCH (08:40)
[2018-06-03] MEDS: OMEGA-3/DHA/EPA/FISH OIL 1,000 MG CAPSULE PO SCH (08:40)
[2018-06-03] MEDS: DOCUSATE SODIUM 100 MG CAPSULE PO SCH (08:41)
[2018-06-03 11:18] LABS: GLUCOMETER DEV NAME(LOC) 3EX.; GLUCOSE,POINT OF CARE 170 MG/DL (70-110)
[2018-06-03 16:19] LABS: GLUCOMETER DEV NAME(LOC) 3EX.; GLUCOSE,POINT OF CARE 280 MG/DL (70-110)
[2018-06-03 17:36] VITALS: BP 122/66
[2018-06-03] MEDS: HALOPERIDOL 10 MG TABLET PO SCH (20:09)
[2018-06-03] MEDS: DiphenhydrAMINE HCL 25 MG CAPSULE PO SCH (20:09)
[2018-06-03 20:25] LABS: GLUCOMETER DEV NAME(LOC) 3EX.; GLUCOSE,POINT OF CARE 137 MG/DL (70-110)
[2018-06-04 05:29] LABS: GLUCOMETER DEV NAME(LOC) 3EX.; GLUCOSE,POINT OF CARE 153 MG/DL (70-110)
[2018-06-04] MEDS: GlipiZIDE 10 MG TABLET PO SCH ×2 (06:37→16:40)
[2018-06-04] MEDS: MetFORMIN HCL 500 MG TABLET PO SCH ×2 (06:37→16:40)
[2018-06-04] MEDS: INSULIN LISPRO 100 UNITS/ML SQ PRN ×2 (06:43→17:44)
[2018-06-04] MEDS: DOCUSATE SODIUM 100 MG CAPSULE PO SCH (08:36)
[2018-06-04] MEDS: MULTIVITAMINS WITH IRON TABLET PO SCH (08:36)
[2018-06-04] MEDS: OMEGA-3/DHA/EPA/FISH OIL 1,000 MG CAPSULE PO SCH (08:36)
[2018-06-04] MEDS: OMEPRAZOLE 20 MG CAPSULE PO SCH (08:36)
[2018-06-04 11:18] LABS: GLUCOMETER DEV NAME(LOC) 3EX.; GLUCOSE,POINT OF CARE 133 MG/DL (70-110)
[2018-06-04 14:35] VITALS: BP 109/64
[2018-06-04 16:18] LABS: GLUCOMETER DEV NAME(LOC) 3EX.; GLUCOSE,POINT OF CARE 261 MG/DL (70-110)
[2018-06-04 16:54] VITALS: BP 117/70
[2018-06-04 20:13] LABS: GLUCOMETER DEV NAME(LOC) 3EX.; GLUCOSE,POINT OF CARE 116 MG/DL (70-110)
[2018-06-04] MEDS: DiphenhydrAMINE HCL 25 MG CAPSULE PO SCH (20:26)
[2018-06-04] MEDS ORDERED: HALOPERIDOL 10 MG TABLET PO SCH (21:00)
[2018-06-05 06:24] LABS: GLUCOMETER DEV NAME(LOC) 3EX.; GLUCOSE,POINT OF CARE 148 MG/DL (70-110)
[2018-06-05] MEDS: MetFORMIN HCL 500 MG TABLET PO SCH (06:58)
[2018-06-05] MEDS: GlipiZIDE 10 MG TABLET PO SCH (06:59)
[2018-06-05] MEDS: INSULIN LISPRO 100 UNITS/ML SQ PRN ×2 (07:02→11:39)
[2018-06-05 08:05] VITALS: BP 121/81
[2018-06-05] MEDS: DOCUSATE SODIUM 100 MG CAPSULE PO SCH (09:04)
[2018-06-05] MEDS: OMEPRAZOLE 20 MG CAPSULE PO SCH (09:04)
[2018-06-05] MEDS: OMEGA-3/DHA/EPA/FISH OIL 1,000 MG CAPSULE PO SCH (09:04)
[2018-06-05] MEDS: MULTIVITAMINS WITH IRON TABLET PO SCH (09:04)
[2018-06-05 11:19] LABS: GLUCOMETER DEV NAME(LOC) 3EX.; GLUCOSE,POINT OF CARE 228 MG/DL (70-110)
[2018-06-05] MEDS ORDERED: DIPH25 PO (12:20)
[2018-06-05] MEDS ORDERED: HALO50VI4 IM (12:20)
[2018-06-05] MEDS ORDERED: OMEG-135 PO (12:20)
[2018-06-05] MEDS ORDERED: HALO10 PO (12:20)
[2018-06-05] MEDS ORDERED: GLIP10 PO (12:59)
[2018-06-05] MEDS ORDERED: METF-960 PO (13:03)
[2018-06-05] MEDS ORDERED: MVITFE PO (13:03)
[2018-06-05] MEDS ORDERED: OMEP20 PO (13:04)
[2018-06-05] MEDS ORDERED: DSS100 PO (13:11)
[2018-06-08] MEDS ORDERED: HALOPERIDOL DECANOATE 50 MG/ML VIAL IM SCH (09:00)
== END 2018-06-05 15:35 | disposition home or self-care (01) | DRG 750 ==
LOC: EMS 14:33 → AHU 22:47 → 3EI 05-22 18:45
PROVIDERS: ADMIT Psychiatry & Neurology Psychiatry; ATTEND Psychiatry & Neurology Psychiatry
DX: F20.0 Paranoid schizophrenia (principal); L03.313 Cellulitis of chest wall; E11.9 Type 2 diabetes mellitus without complications; F31.9 Bipolar disorder, unspecified; G47.00 Insomnia, unspecified; N64.89 Other specified disorders of breast; R45.850 Homicidal ideations; Z88.8 Allergy status to other drugs, medicaments and biological substances; Z28.21 Immunization not carried out because of patient refusal; Z91.19 Patient's noncompliance with other medical treatment and regimen
CPT/HCPCS: 80173; 83036; 83735; 84100; 84439; 84443; 85007; G0378; G0480; J1631; J1815

== ENCOUNTER 2018-06-16 15:58 | Emergency (ER) | payer MEDICAID, OTHER ==
[~2018-06-16] VITALS: Ht 144.8 cm; Wt 57.7 kg
[~2018-06-16 15:58] MED LIST changes: +DIPH25 PO; -DIPH50 PO; +DSS100 PO; +GLIP10 PO; +HALO10 PO; +HALO100V4 IM; +HALO50VI4 IM; -LURA80 PO; +METF-960 PO; +MVITFE PO; +OMEG-135 PO; +OMEP20 PO
[2018-06-16 16:19] LABS: GLUCOSE,POINT OF CARE 353 MG/DL (70-110)
[2018-06-16] MEDS ORDERED: INSLAN SQ (16:19)
[2018-06-16] MEDS ORDERED: BENZ2TAB10 PO (16:19)
[2018-06-16] MEDS ORDERED: PALI234D IM (16:19)
[2018-06-16 18:14] LABS: BASOPHILS % (AUTO) 0.7 % (0.0-2.0); EOSINOPHILS % (AUTO) 1.5 % (1.0-6.0); HEMATOCRIT 44.2 % (36-46); LYMPHOCYTES # (AUTO) 2.8 K/uL (1.0-4.8); LYMPHOCYTES % (AUTO) 24.3 % (22.0-44.0); MEAN CORPUSCULAR HEMOGLOBIN 22.3 pg (26.0-34.0); MEAN CORPUSCULAR HGB CONC 31.8 G/dL (31.0-37.0); MEAN CORPUSCULAR VOLUME 70 fL (80-100); MONOCYTES # (AUTO) 0.7 K/uL (0.1-1.0); MONOCYTES % (AUTO) 5.9 % (2.0-9.0); NEUTROPHILS # (AUTO) 7.7 K/uL (1.8-7.7); NEUTROPHILS % (AUTO) 67.6 % (40.0-70.0); PLATELET COUNT (AUTO) 359 K/uL (150-450); RED CELL DISTRIBUTION WIDTH 15.2 % (11.5-14.5)
[2018-06-16 18:21] LABS: ANION GAP 15 mmol/L (8-16); CALCIUM, TOTAL 9.3 mg/dL (8.8-10.5); CARBON DIOXIDE 24 mmol/L (22-29); CHLORIDE 98 mmol/L (98-107); CREATININE 0.69 mg/dL (0.60-1.30); GLOMERULAR FILTR. RATE CALC > 60 mL/min (>60); GLUCOSE,RANDOM 226 mg/dL (70-110); POTASSIUM 4.3 mmol/L (3.5-5.1); SODIUM SERUM 137 mmol/L (136-145); UREA NITROGEN, BLOOD 5 mg/dL (7-18)
[2018-06-16 18:25] LABS: ALANINE AMINOTRANSFERASE 22 U/L (12-78); ALBUMIN 3.8 g/dL (3.4-5.0); ALKALINE PHOSPHATASE 119 U/L (46-116); ASPARTATE AMINOTRANSFERASE 14 U/L (15-37); BILIRUBIN,TOTAL 0.3 mg/dL (0.1-1.0); TOTAL PROTEIN, SERUM 8.6 g/dL (6.4-8.2)
[2018-06-16 19:36] LABS: PLATELET MORPHOLOGY COMMENT GIANT PLTS PRESENT
[2018-06-16] MEDS ORDERED: CefTRIAXone 1 GM/DEXTROSE 50 ML IV ONE (20:00)
[2018-06-16 20:03] VITALS: BP 113/76
== END 2018-06-16 21:04 | disposition home or self-care (01) ==
LOC: EMS 16:01
DX: N61.1 Abscess of the breast and nipple (principal); E11.9 Type 2 diabetes mellitus without complications; F31.9 Bipolar disorder, unspecified; F20.9 Schizophrenia, unspecified; Z88.8 Allergy status to other drugs, medicaments and biological substances; Z79.84 Long term (current) use of oral hypoglycemic drugs; Z79.4 Long term (current) use of insulin; Z79.899 Other long term (current) drug therapy
CPT/HCPCS: 36415; 80053; 82962; 85025; 96365; 99283; J0696

== ENCOUNTER 2019-01-01 11:39 | Inpatient (IN) | payer MEDICAID ==
[~2019-01-01] VITALS: Ht 147.3 cm; Wt 55.8 kg
[~2019-01-01 11:39] MED LIST changes: +BENZ2TAB10 PO; -HALO100V4 IM; -HALO50VI4 IM; +INSLAN SQ; +PALI234D IM
[2019-01-01] MEDS ORDERED: DIPH25CA85 PO (12:16)
[2019-01-01] MEDS ORDERED: HALO5TAB2 PO (12:16)
[2019-01-01 12:25] VITALS: BP 135/83
[2019-01-01] MEDS ORDERED: HALOPERIDOL 5 MG TABLET PO PRN (12:30)
[2019-01-01] MEDS ORDERED: HALO10 PO (13:00)
[2019-01-01] MEDS ORDERED: PNEUMOCOCCAL VACCINE POLYVALENT 0.5 ML VIAL [PPSV23] IM ONE (13:30)
[2019-01-01] MEDS ORDERED: GLUCAGON,HUMAN RECOMBINANT 1 MG VIAL IM PRN (13:45)
[2019-01-01] MEDS: INSULIN LISPRO 100 UNITS/ML SQ PRN (14:44)
[2019-01-01 16:19] VITALS: BP 125/74
[2019-01-01] MEDS: GlipiZIDE 10 MG TABLET PO SCH (16:27)
[2019-01-01] MEDS: MetFORMIN HCL 500 MG TABLET PO SCH (17:21)
[2019-01-01] MEDS: OLANZapine 10 MG TABLET PO SCH (17:22)
[2019-01-01] MEDS: INSULIN GLARGINE,HUM.REC.ANLOG 100 UNITS/ML SQ SCH (20:33)
[2019-01-01 22:29] LABS: GLUCOMETER DEV NAME(LOC) BV2S.; GLUCOSE,POINT OF CARE 106 MG/DL (70-110)
[2019-01-02 06:30] VITALS: BP 103/64
[2019-01-02] MEDS: MetFORMIN HCL 500 MG TABLET PO SCH ×2 (06:43→16:30)
[2019-01-02] MEDS: GlipiZIDE 10 MG TABLET PO SCH ×2 (06:43→16:24)
[2019-01-02] MEDS: INSULIN LISPRO 100 UNITS/ML SQ PRN ×3 (06:46→21:15)
[2019-01-02 06:50] LABS: GLUCOMETER DEV NAME(LOC) BV2S.; GLUCOSE,POINT OF CARE 271 MG/DL (70-110)
[2019-01-02 08:21] VITALS: BP 103/64
[2019-01-02] MEDS: OLANZapine 10 MG TABLET PO SCH ×2 (08:47→16:24)
[2019-01-02] MEDS: OMEPRAZOLE 20 MG CAPSULE PO SCH (08:47)
[2019-01-02 11:20] LABS: GLUCOMETER DEV NAME(LOC) BV2S.; GLUCOSE,POINT OF CARE 238 MG/DL (70-110)
[2019-01-02 16:00] VITALS: BP 112/67
[2019-01-02 16:36] LABS: GLUCOMETER DEV NAME(LOC) BV2S.; GLUCOSE,POINT OF CARE 255 MG/DL (70-110)
[2019-01-02] MEDS: INSULIN GLARGINE,HUM.REC.ANLOG 100 UNITS/ML SQ SCH (21:15)
[2019-01-02 21:20] LABS: GLUCOMETER DEV NAME(LOC) BV2S.; GLUCOSE,POINT OF CARE 237 MG/DL (70-110)
[2019-01-03 02:57] VITALS: BP 112/73
[2019-01-03] MEDS: MetFORMIN HCL 500 MG TABLET PO SCH ×2 (06:27→16:35)
[2019-01-03] MEDS: GlipiZIDE 10 MG TABLET PO SCH ×2 (06:27→16:35)
[2019-01-03 06:31] LABS: GLUCOMETER DEV NAME(LOC) BV2S.; GLUCOSE,POINT OF CARE 272 MG/DL (70-110)
[2019-01-03] MEDS: INSULIN LISPRO 100 UNITS/ML SQ PRN ×5 (06:41→21:12)
[2019-01-03 08:15] LABS: BASOPHILS % (AUTO) 0.8 % (0.0-2.0); EOSINOPHILS % (AUTO) 5.1 % (1.0-6.0); HEMATOCRIT 44.2 % (36-46); LYMPHOCYTES # (AUTO) 2.1 K/uL (1.0-4.8); LYMPHOCYTES % (AUTO) 30.4 % (22.0-44.0); MEAN CORPUSCULAR HEMOGLOBIN 22.5 pg (26.0-34.0); MEAN CORPUSCULAR HGB CONC 31.8 G/dL (31.0-37.0); MEAN CORPUSCULAR VOLUME 71 fL (80-100); MONOCYTES # (AUTO) 0.5 K/uL (0.1-1.0); MONOCYTES % (AUTO) 7.1 % (2.0-9.0); NEUTROPHILS % (AUTO) 56.6 % (40.0-70.0); PLATELET COUNT (AUTO) 289 K/uL (150-450); RED BLOOD CELL COUNT(AUTO) 6.25 MIL/uL (4.00-5.20); RED CELL DISTRIBUTION WIDTH 14.1 % (11.5-14.5)
[2019-01-03 08:21] VITALS: BP 111/72
[2019-01-03] MEDS: OLANZapine 10 MG TABLET PO SCH ×2 (08:25→16:35)
[2019-01-03] MEDS: OMEPRAZOLE 20 MG CAPSULE PO SCH (08:25)
[2019-01-03 08:44] LABS: HEMOGLOBIN A1C 11.6 % (4.5-6.2)
[2019-01-03 08:47] LABS: ALANINE AMINOTRANSFERASE 16 U/L (12-78); ALBUMIN 3.1 g/dL (3.4-5.0); ALKALINE PHOSPHATASE 97 U/L (46-116); ANION GAP 11 mmol/L (8-16); ASPARTATE AMINOTRANSFERASE 11 U/L (15-37); BILIRUBIN,TOTAL 0.5 mg/dL (0.1-1.0); CALCIUM, TOTAL 8.6 mg/dL (8.8-10.5); CARBON DIOXIDE 25 mmol/L (22-29); CHLORIDE 102 mmol/L (98-107); CHOLESTEROL 252 mg/dL (131-200); CREATININE 0.51 mg/dL (0.60-1.30); FREE T4 (FREE THYROXINE) 0.96 ng/dL (0.76-1.46); GLOMERULAR FILTR. RATE CALC > 60 mL/min (>60); GLUCOSE,RANDOM 276 mg/dL (70-110); HCG,QUANTITATIVE < 1 mIU/mL (0-6); HDL CHOLESTEROL 42 mg/dL (40-60); LDL CHOL (CALC.) 174 mg/dL (0-130); POTASSIUM 4.3 mmol/L (3.5-5.1); SODIUM SERUM 138 mmol/L (136-145); THYROID STIMULATING HORMONE 0.94 uIU/mL (0.36-3.74); TOTAL PROTEIN, SERUM 6.7 g/dL (6.4-8.2); TRIGLYCERIDES 181 mg/dL (15-150); UREA NITROGEN, BLOOD 13 mg/dL (7-18)
[2019-01-03 11:14] LABS: GLUCOMETER DEV NAME(LOC) BV2S.; GLUCOSE,POINT OF CARE 250 MG/DL (70-110)
[2019-01-03 16:00] VITALS: BP 102/71
[2019-01-03 16:46] LABS: GLUCOMETER DEV NAME(LOC) BV2S.; GLUCOSE,POINT OF CARE 211 MG/DL (70-110)
[2019-01-03 20:21] LABS: GLUCOMETER DEV NAME(LOC) BV2S.; GLUCOSE,POINT OF CARE 155 MG/DL (70-110)
[2019-01-03] MEDS: INSULIN GLARGINE,HUM.REC.ANLOG 100 UNITS/ML SQ SCH (21:11)
[2019-01-03] MEDS: ZOLPIDEM TARTRATE 10 MG TABLET PO PRN (22:32)
[2019-01-04 05:44] VITALS: BP 110/78
[2019-01-04 06:16] LABS: GLUCOMETER DEV NAME(LOC) BV2S.; GLUCOSE,POINT OF CARE 272 MG/DL (70-110)
[2019-01-04] MEDS: MetFORMIN HCL 500 MG TABLET PO SCH ×2 (06:50→16:35)
[2019-01-04] MEDS: GlipiZIDE 10 MG TABLET PO SCH ×2 (06:50→17:16)
[2019-01-04] MEDS: INSULIN LISPRO 100 UNITS/ML SQ PRN ×3 (06:53→21:50)
[2019-01-04 08:24] VITALS: BP 112/62
[2019-01-04] MEDS: OMEPRAZOLE 20 MG CAPSULE PO SCH (08:59)
[2019-01-04] MEDS: OLANZapine 10 MG TABLET PO SCH ×2 (08:59→16:40)
[2019-01-04 13:01] LABS: GLUCOMETER DEV NAME(LOC) BV2S.; GLUCOSE,POINT OF CARE 281 MG/DL (70-110)
[2019-01-04 16:08] VITALS: BP 105/68
[2019-01-04 21:41] LABS: GLUCOMETER DEV NAME(LOC) BV2S.; GLUCOSE,POINT OF CARE 331 MG/DL (70-110)
[2019-01-04 21:41] LABS: GLUCOMETER DEV NAME(LOC) BV2S.; GLUCOSE,POINT OF CARE 188 MG/DL (70-110)
[2019-01-04] MEDS: INSULIN GLARGINE,HUM.REC.ANLOG 100 UNITS/ML SQ SCH (21:49)
[2019-01-05 02:45] VITALS: BP 108/72
[2019-01-05] MEDS: MetFORMIN HCL 500 MG TABLET PO SCH ×2 (06:35→16:26)
[2019-01-05] MEDS: GlipiZIDE 10 MG TABLET PO SCH ×2 (06:35→16:26)
[2019-01-05 06:41] LABS: GLUCOMETER DEV NAME(LOC) BV2S.; GLUCOSE,POINT OF CARE 197 MG/DL (70-110)
[2019-01-05] MEDS: INSULIN LISPRO 100 UNITS/ML SQ PRN ×4 (06:47→21:09)
[2019-01-05] MEDS: OLANZapine 10 MG TABLET PO SCH ×2 (08:33→16:26)
[2019-01-05] MEDS: OMEPRAZOLE 20 MG CAPSULE PO SCH (08:33)
[2019-01-05 08:41] VITALS: BP 108/61
[2019-01-05 11:16] LABS: GLUCOMETER DEV NAME(LOC) BV2S.; GLUCOSE,POINT OF CARE 148 MG/DL (70-110)
[2019-01-05 16:04] VITALS: BP 104/72
[2019-01-05 16:26] LABS: GLUCOMETER DEV NAME(LOC) BV3S.; GLUCOSE,POINT OF CARE 351 MG/DL (70-110)
[2019-01-05 20:51] LABS: GLUCOMETER DEV NAME(LOC) BV3S.; GLUCOSE,POINT OF CARE 202 MG/DL (70-110)
[2019-01-05] MEDS: INSULIN GLARGINE,HUM.REC.ANLOG 100 UNITS/ML SQ SCH (21:10)
[2019-01-06 06:21] LABS: GLUCOMETER DEV NAME(LOC) BV3S.; GLUCOSE,POINT OF CARE 206 MG/DL (70-110)
[2019-01-06] MEDS: GlipiZIDE 10 MG TABLET PO SCH ×2 (07:07→16:30)
[2019-01-06] MEDS: MetFORMIN HCL 500 MG TABLET PO SCH ×2 (07:07→17:14)
[2019-01-06] MEDS: INSULIN LISPRO 100 UNITS/ML SQ PRN ×4 (07:08→20:36)
[2019-01-06 07:20] VITALS: BP 112/70
[2019-01-06 08:24] VITALS: BP 122/71
[2019-01-06] MEDS: OLANZapine 10 MG TABLET PO SCH ×2 (08:43→16:06)
[2019-01-06] MEDS: OMEPRAZOLE 20 MG CAPSULE PO SCH (08:43)
[2019-01-06 12:36] LABS: GLUCOMETER DEV NAME(LOC) BV3S.; GLUCOSE,POINT OF CARE 148 MG/DL (70-110)
[2019-01-06 16:07] VITALS: BP 118/71
[2019-01-06 19:21] LABS: GLUCOMETER DEV NAME(LOC) BV3S.; GLUCOSE,POINT OF CARE 361 MG/DL (70-110)
[2019-01-06] MEDS: INSULIN GLARGINE,HUM.REC.ANLOG 100 UNITS/ML SQ SCH (20:36)
[2019-01-06 20:51] LABS: GLUCOMETER DEV NAME(LOC) BV3S.; GLUCOSE,POINT OF CARE 210 MG/DL (70-110)
[2019-01-06] MEDS: ZOLPIDEM TARTRATE 10 MG TABLET PO PRN (22:06)
[2019-01-07 06:32] VITALS: BP 114/69
[2019-01-07] MEDS: GlipiZIDE 10 MG TABLET PO SCH ×2 (06:55→16:30)
[2019-01-07] MEDS: MetFORMIN HCL 500 MG TABLET PO SCH ×2 (06:55→16:55)
[2019-01-07] MEDS: INSULIN LISPRO 100 UNITS/ML SQ PRN ×2 (06:55→16:35)
[2019-01-07 06:56] LABS: GLUCOMETER DEV NAME(LOC) BV3S.; GLUCOSE,POINT OF CARE 195 MG/DL (70-110)
[2019-01-07] MEDS: OLANZapine 10 MG TABLET PO SCH ×2 (08:08→16:30)
[2019-01-07] MEDS: OMEPRAZOLE 20 MG CAPSULE PO SCH (08:08)
[2019-01-07 08:17] VITALS: BP 117/81
[2019-01-07 11:11] LABS: GLUCOMETER DEV NAME(LOC) BV3S.; GLUCOSE,POINT OF CARE 125 MG/DL (70-110)
[2019-01-07 16:11] VITALS: BP 107/60
[2019-01-07 17:16] LABS: GLUCOMETER DEV NAME(LOC) BV3S.; GLUCOSE,POINT OF CARE 272 MG/DL (70-110)
[2019-01-07] MEDS: INSULIN GLARGINE,HUM.REC.ANLOG 100 UNITS/ML SQ SCH (20:52)
[2019-01-07 21:05] LABS: GLUCOMETER DEV NAME(LOC) BV3S.; GLUCOSE,POINT OF CARE 119 MG/DL (70-110)
[2019-01-08] MEDS: GlipiZIDE 10 MG TABLET PO SCH ×2 (06:39→16:25)
[2019-01-08] MEDS: MetFORMIN HCL 500 MG TABLET PO SCH ×2 (06:40→16:25)
[2019-01-08] MEDS: INSULIN LISPRO 100 UNITS/ML SQ PRN ×3 (06:42→21:00)
[2019-01-08 06:56] LABS: GLUCOMETER DEV NAME(LOC) BV3S.; GLUCOSE,POINT OF CARE 157 MG/DL (70-110)
[2019-01-08 07:02] VITALS: BP 101/58
[2019-01-08] MEDS: OMEPRAZOLE 20 MG CAPSULE PO SCH (08:10)
[2019-01-08] MEDS: OLANZapine 10 MG TABLET PO SCH ×2 (08:10→16:25)
[2019-01-08 08:28] VITALS: BP 104/58
[2019-01-08 11:51] LABS: GLUCOMETER DEV NAME(LOC) BV3S.; GLUCOSE,POINT OF CARE 80 MG/DL (70-110)
[2019-01-08 16:09] VITALS: BP 118/75
[2019-01-08] MEDS: BENZOCAINE 10% 7 GM GEL TP SCH (16:24)
[2019-01-08 16:46] LABS: GLUCOMETER DEV NAME(LOC) BV3S.; GLUCOSE,POINT OF CARE 349 MG/DL (70-110)
[2019-01-08] MEDS: ZOLPIDEM TARTRATE 10 MG TABLET PO PRN (20:02)
[2019-01-08 20:51] LABS: GLUCOMETER DEV NAME(LOC) BV3S.; GLUCOSE,POINT OF CARE 220 MG/DL (70-110)
[2019-01-08] MEDS: INSULIN GLARGINE,HUM.REC.ANLOG 100 UNITS/ML SQ SCH (21:00)
[2019-01-09] MEDS: MetFORMIN HCL 500 MG TABLET PO SCH ×2 (06:31→16:49)
[2019-01-09] MEDS: GlipiZIDE 10 MG TABLET PO SCH ×2 (06:31→16:49)
[2019-01-09 06:43] VITALS: BP 106/76
[2019-01-09 06:46] LABS: GLUCOMETER DEV NAME(LOC) BV3S.; GLUCOSE,POINT OF CARE 128 MG/DL (70-110)
[2019-01-09 08:01] VITALS: BP 104/59
[2019-01-09] MEDS: OMEPRAZOLE 20 MG CAPSULE PO SCH (08:31)
[2019-01-09] MEDS: OLANZapine 10 MG TABLET PO SCH ×2 (08:31→16:49)
[2019-01-09] MEDS: BENZOCAINE 10% 7 GM GEL TP SCH ×2 (08:32→16:05)
[2019-01-09 11:16] LABS: GLUCOMETER DEV NAME(LOC) BV3S.; GLUCOSE,POINT OF CARE 125 MG/DL (70-110)
[2019-01-09 16:20] VITALS: BP 119/73
[2019-01-09] MEDS: INSULIN LISPRO 100 UNITS/ML SQ PRN ×2 (16:53→20:52)
[2019-01-09 17:37] LABS: GLUCOMETER DEV NAME(LOC) BV3S.; GLUCOSE,POINT OF CARE 294 MG/DL (70-110)
[2019-01-09] MEDS: ZOLPIDEM TARTRATE 10 MG TABLET PO PRN (20:41)
[2019-01-09] MEDS: INSULIN GLARGINE,HUM.REC.ANLOG 100 UNITS/ML SQ SCH (20:51)
[2019-01-09 22:16] LABS: GLUCOMETER DEV NAME(LOC) BV3S.; GLUCOSE,POINT OF CARE 145 MG/DL (70-110)
[2019-01-10] MEDS: MetFORMIN HCL 500 MG TABLET PO SCH ×2 (06:30→16:49)
[2019-01-10] MEDS: GlipiZIDE 10 MG TABLET PO SCH ×2 (06:30→16:49)
[2019-01-10 06:31] VITALS: BP 103/62
[2019-01-10] MEDS: INSULIN LISPRO 100 UNITS/ML SQ PRN ×3 (06:32→17:23)
[2019-01-10 06:36] LABS: GLUCOMETER DEV NAME(LOC) BV3S.; GLUCOSE,POINT OF CARE 152 MG/DL (70-110)
[2019-01-10] MEDS: OLANZapine 10 MG TABLET PO SCH ×2 (08:08→16:49)
[2019-01-10] MEDS: OMEPRAZOLE 20 MG CAPSULE PO SCH (08:08)
[2019-01-10] MEDS: BENZOCAINE 10% 7 GM GEL TP SCH ×2 (08:09→16:50)
[2019-01-10 08:15] VITALS: BP 119/73
[2019-01-10 08:30] VITALS: BP 119/73
[2019-01-10 12:57] LABS: GLUCOMETER DEV NAME(LOC) BV3S.; GLUCOSE,POINT OF CARE 191 MG/DL (70-110)
[2019-01-10 16:03] VITALS: BP 106/70
[2019-01-10 16:06] LABS: GLUCOMETER DEV NAME(LOC) BV3S.; GLUCOSE,POINT OF CARE 184 MG/DL (70-110)
[2019-01-10] MEDS: DOCUSATE SODIUM 100 MG CAPSULE PO PRN (17:26)
[2019-01-10] MEDS: ZOLPIDEM TARTRATE 10 MG TABLET PO PRN (21:08)
[2019-01-10] MEDS: INSULIN GLARGINE,HUM.REC.ANLOG 100 UNITS/ML SQ SCH (21:09)
[2019-01-10 21:12] LABS: GLUCOMETER DEV NAME(LOC) BV3S.; GLUCOSE,POINT OF CARE 132 MG/DL (70-110)
[2019-01-11 06:32] VITALS: BP 122/73
[2019-01-11] MEDS: MetFORMIN HCL 500 MG TABLET PO SCH ×2 (06:34→16:38)
[2019-01-11] MEDS: GlipiZIDE 10 MG TABLET PO SCH ×2 (06:34→16:35)
[2019-01-11 06:46] LABS: GLUCOMETER DEV NAME(LOC) BV3S.; GLUCOSE,POINT OF CARE 108 MG/DL (70-110)
[2019-01-11] MEDS: OMEPRAZOLE 20 MG CAPSULE PO SCH (08:14)
[2019-01-11] MEDS: OLANZapine 10 MG TABLET PO SCH ×2 (08:14→16:35)
[2019-01-11 08:15] VITALS: BP 103/64
[2019-01-11] MEDS: BENZOCAINE 10% 7 GM GEL TP SCH ×2 (08:22→16:53)
[2019-01-11] MEDS: INSULIN LISPRO 100 UNITS/ML SQ PRN ×3 (11:45→20:56)
[2019-01-11 12:21] LABS: GLUCOMETER DEV NAME(LOC) BV3S.; GLUCOSE,POINT OF CARE 181 MG/DL (70-110)
[2019-01-11 16:09] VITALS: BP 119/74
[2019-01-11 17:07] LABS: GLUCOMETER DEV NAME(LOC) BV3S.; GLUCOSE,POINT OF CARE 347 MG/DL (70-110)
[2019-01-11] MEDS ORDERED: OLANZapine 5 MG RAPDIS TABLET PO PRN (17:45)
[2019-01-11] MEDS: DOCUSATE SODIUM 100 MG CAPSULE PO PRN (18:37)
[2019-01-11] MEDS: INSULIN GLARGINE,HUM.REC.ANLOG 100 UNITS/ML SQ SCH (20:56)
[2019-01-11 21:36] LABS: GLUCOMETER DEV NAME(LOC) BV3S.; GLUCOSE,POINT OF CARE 152 MG/DL (70-110)
[2019-01-12 06:32] LABS: GLUCOMETER DEV NAME(LOC) BV3S.; GLUCOSE,POINT OF CARE 122 MG/DL (70-110)
[2019-01-12 06:40] VITALS: BP 117/75
[2019-01-12] MEDS: MetFORMIN HCL 500 MG TABLET PO SCH ×2 (07:02→16:35)
[2019-01-12] MEDS: GlipiZIDE 10 MG TABLET PO SCH ×2 (07:02→16:18)
[2019-01-12] MEDS: OMEPRAZOLE 20 MG CAPSULE PO SCH (08:07)
[2019-01-12] MEDS: OLANZapine 10 MG RAPDIS TABLET PO SCH (08:07)
[2019-01-12] MEDS: BENZOCAINE 10% 7 GM GEL TP SCH ×2 (08:08→16:19)
[2019-01-12 08:36] VITALS: BP 106/72
[2019-01-12] MEDS ORDERED: OLANZapine 10 MG TABLET PO SCH (09:00)
[2019-01-12 11:11] LABS: GLUCOMETER DEV NAME(LOC) BV3S.; GLUCOSE,POINT OF CARE 92 MG/DL (70-110)
[2019-01-12 16:04] VITALS: BP 128/78
[2019-01-12 16:30] LABS: GLUCOMETER DEV NAME(LOC) BV3S.; GLUCOSE,POINT OF CARE 287 MG/DL (70-110)
[2019-01-12] MEDS: INSULIN LISPRO 100 UNITS/ML SQ PRN ×2 (16:39→20:33)
[2019-01-12] MEDS: DiphenhydrAMINE HCL 25 MG CAPSULE PO SCH (20:18)
[2019-01-12 20:25] LABS: GLUCOMETER DEV NAME(LOC) BV3S.; GLUCOSE,POINT OF CARE 230 MG/DL (70-110)
[2019-01-12] MEDS: INSULIN GLARGINE,HUM.REC.ANLOG 100 UNITS/ML SQ SCH (20:33)
[2019-01-13 06:20] VITALS: BP 120/73
[2019-01-13] MEDS: GlipiZIDE 10 MG TABLET PO SCH ×2 (06:34→16:13)
[2019-01-13] MEDS: MetFORMIN HCL 500 MG TABLET PO SCH ×2 (06:34→16:13)
[2019-01-13] MEDS: INSULIN LISPRO 100 UNITS/ML SQ PRN ×3 (06:41→17:00)
[2019-01-13 06:46] LABS: GLUCOMETER DEV NAME(LOC) BV3S.; GLUCOSE,POINT OF CARE 145 MG/DL (70-110)
[2019-01-13 08:05] VITALS: BP 138/77
[2019-01-13] MEDS: OMEPRAZOLE 20 MG CAPSULE PO SCH (09:25)
[2019-01-13] MEDS: BENZOCAINE 10% 7 GM GEL TP SCH ×2 (09:25→17:00)
[2019-01-13] MEDS: OLANZapine 10 MG RAPDIS TABLET PO SCH (09:25)
[2019-01-13] MEDS: FluPHENAZine DECANOATE 25 MG/ML IM SCH (09:44)
[2019-01-13 11:05] LABS: GLUCOMETER DEV NAME(LOC) BV3S.; GLUCOSE,POINT OF CARE 169 MG/DL (70-110)
[2019-01-13 16:02] VITALS: BP 121/77
[2019-01-13 16:20] LABS: GLUCOMETER DEV NAME(LOC) BV3S.; GLUCOSE,POINT OF CARE 249 MG/DL (70-110)
[2019-01-13] MEDS: DiphenhydrAMINE HCL 25 MG CAPSULE PO SCH (20:11)
[2019-01-13 20:30] LABS: GLUCOMETER DEV NAME(LOC) BV3S.; GLUCOSE,POINT OF CARE 88 MG/DL (70-110)
[2019-01-13 22:30] LABS: GLUCOMETER DEV NAME(LOC) BV3S.; GLUCOSE,POINT OF CARE 94 MG/DL (70-110)
[2019-01-13] MEDS: INSULIN GLARGINE,HUM.REC.ANLOG 100 UNITS/ML SQ SCH (22:30)
[2019-01-14 06:30] LABS: GLUCOMETER DEV NAME(LOC) BV3S.; GLUCOSE,POINT OF CARE 96 MG/DL (70-110)
[2019-01-14 07:04] VITALS: BP 125/72
[2019-01-14] MEDS: MetFORMIN HCL 500 MG TABLET PO SCH ×2 (07:07→16:45)
[2019-01-14] MEDS: GlipiZIDE 10 MG TABLET PO SCH ×2 (07:07→16:32)
[2019-01-14] MEDS: OMEPRAZOLE 20 MG CAPSULE PO SCH (08:14)
[2019-01-14] MEDS: OLANZapine 10 MG RAPDIS TABLET PO SCH (08:14)
[2019-01-14] MEDS: BENZOCAINE 10% 7 GM GEL TP SCH ×2 (08:15→16:34)
[2019-01-14 08:38] VITALS: BP 111/71
[2019-01-14 11:10] LABS: GLUCOMETER DEV NAME(LOC) BV3S.; GLUCOSE,POINT OF CARE 173 MG/DL (70-110)
[2019-01-14] MEDS: INSULIN LISPRO 100 UNITS/ML SQ PRN ×3 (11:54→20:24)
[2019-01-14 16:12] VITALS: BP 117/75
[2019-01-14 17:16] LABS: GLUCOMETER DEV NAME(LOC) BV3S.; GLUCOSE,POINT OF CARE 263 MG/DL (70-110)
[2019-01-14] MEDS: DiphenhydrAMINE HCL 25 MG CAPSULE PO SCH (20:12)
[2019-01-14] MEDS: INSULIN GLARGINE,HUM.REC.ANLOG 100 UNITS/ML SQ SCH (20:25)
[2019-01-14 20:51] LABS: GLUCOMETER DEV NAME(LOC) BV3S.; GLUCOSE,POINT OF CARE 146 MG/DL (70-110)
[2019-01-15 06:16] LABS: GLUCOMETER DEV NAME(LOC) BV3S.; GLUCOSE,POINT OF CARE 131 MG/DL (70-110)
[2019-01-15] MEDS: MetFORMIN HCL 500 MG TABLET PO SCH ×2 (06:52→16:38)
[2019-01-15] MEDS: GlipiZIDE 10 MG TABLET PO SCH ×2 (06:52→16:13)
[2019-01-15 08:13] VITALS: BP 123/79
[2019-01-15] MEDS: OMEPRAZOLE 20 MG CAPSULE PO SCH (08:23)
[2019-01-15] MEDS: OLANZapine 10 MG RAPDIS TABLET PO SCH (08:23)
[2019-01-15] MEDS: BENZOCAINE 10% 7 GM GEL TP SCH ×2 (08:24→16:38)
[2019-01-15 11:36] LABS: GLUCOMETER DEV NAME(LOC) BV3S.; GLUCOSE,POINT OF CARE 179 MG/DL (70-110)
[2019-01-15] MEDS: INSULIN LISPRO 100 UNITS/ML SQ PRN ×2 (12:06→16:19)
[2019-01-15 16:00] VITALS: BP 116/86
[2019-01-15 16:51] LABS: GLUCOMETER DEV NAME(LOC) BV3S.; GLUCOSE,POINT OF CARE 209 MG/DL (70-110)
[2019-01-15] MEDS: INSULIN GLARGINE,HUM.REC.ANLOG 100 UNITS/ML SQ SCH (20:46)
[2019-01-15] MEDS: DiphenhydrAMINE HCL 25 MG CAPSULE PO SCH (20:47)
[2019-01-15 21:06] LABS: GLUCOMETER DEV NAME(LOC) BV3S.; GLUCOSE,POINT OF CARE 88 MG/DL (70-110)
[2019-01-16 06:16] LABS: GLUCOMETER DEV NAME(LOC) BV3S.; GLUCOSE,POINT OF CARE 94 MG/DL (70-110)
[2019-01-16 06:54] VITALS: BP 117/71
[2019-01-16] MEDS: GlipiZIDE 10 MG TABLET PO SCH ×2 (06:59→16:15)
[2019-01-16] MEDS: MetFORMIN HCL 500 MG TABLET PO SCH ×2 (06:59→16:37)
[2019-01-16 08:20] VITALS: BP 103/61
[2019-01-16] MEDS: OMEPRAZOLE 20 MG CAPSULE PO SCH (08:42)
[2019-01-16] MEDS: BENZOCAINE 10% 7 GM GEL TP SCH ×2 (08:42→16:15)
[2019-01-16] MEDS: OLANZapine 10 MG RAPDIS TABLET PO SCH (08:42)
[2019-01-16] MEDS: OMEGA-3/DHA/EPA/FISH OIL 1,000 MG CAPSULE PO SCH (09:22)
[2019-01-16] MEDS: INSULIN LISPRO 100 UNITS/ML SQ PRN ×3 (11:42→20:29)
[2019-01-16 16:18] VITALS: BP 111/82
[2019-01-16 16:36] LABS: GLUCOMETER DEV NAME(LOC) BV3S.; GLUCOSE,POINT OF CARE 151 MG/DL (70-110)
[2019-01-16 16:37] LABS: GLUCOMETER DEV NAME(LOC) BV3S.; GLUCOSE,POINT OF CARE 296 MG/DL (70-110)
[2019-01-16 20:21] LABS: GLUCOMETER DEV NAME(LOC) BV3S.; GLUCOSE,POINT OF CARE 188 MG/DL (70-110)
[2019-01-16] MEDS: DiphenhydrAMINE HCL 25 MG CAPSULE PO SCH (20:26)
[2019-01-16] MEDS: INSULIN GLARGINE,HUM.REC.ANLOG 100 UNITS/ML SQ SCH (20:30)
[2019-01-17] MEDS: GlipiZIDE 10 MG TABLET PO SCH ×2 (06:54→16:12)
[2019-01-17] MEDS: MetFORMIN HCL 500 MG TABLET PO SCH ×2 (06:55→16:12)
[2019-01-17 06:57] VITALS: BP 105/66
[2019-01-17 07:10] LABS: GLUCOMETER DEV NAME(LOC) BV3S.; GLUCOSE,POINT OF CARE 108 MG/DL (70-110)
[2019-01-17] MEDS: OMEGA-3/DHA/EPA/FISH OIL 1,000 MG CAPSULE PO SCH (08:27)
[2019-01-17] MEDS: OLANZapine 10 MG RAPDIS TABLET PO SCH (08:27)
[2019-01-17] MEDS: OMEPRAZOLE 20 MG CAPSULE PO SCH (08:27)
[2019-01-17] MEDS: BENZOCAINE 10% 7 GM GEL TP SCH ×2 (08:32→17:00)
[2019-01-17 08:39] VITALS: BP 100/58
[2019-01-17 11:51] LABS: GLUCOMETER DEV NAME(LOC) BV3S.; GLUCOSE,POINT OF CARE 90 MG/DL (70-110)
[2019-01-17 16:09] VITALS: BP 127/81
[2019-01-17 16:10] LABS: GLUCOMETER DEV NAME(LOC) BV3S.; GLUCOSE,POINT OF CARE 187 MG/DL (70-110)
[2019-01-17] MEDS: INSULIN LISPRO 100 UNITS/ML SQ PRN ×2 (16:41→20:02)
[2019-01-17] MEDS: DiphenhydrAMINE HCL 25 MG CAPSULE PO SCH (19:58)
[2019-01-17 20:00] LABS: GLUCOMETER DEV NAME(LOC) BV3S.; GLUCOSE,POINT OF CARE 217 MG/DL (70-110)
[2019-01-17] MEDS: INSULIN GLARGINE,HUM.REC.ANLOG 100 UNITS/ML SQ SCH (20:02)
[2019-01-18 06:26] LABS: GLUCOMETER DEV NAME(LOC) BV3S.; GLUCOSE,POINT OF CARE 105 MG/DL (70-110)
[2019-01-18 06:29] VITALS: BP 108/77
[2019-01-18] MEDS: GlipiZIDE 10 MG TABLET PO SCH ×2 (07:00→16:35)
[2019-01-18] MEDS: MetFORMIN HCL 500 MG TABLET PO SCH ×2 (07:00→16:36)
[2019-01-18] MEDS: OMEPRAZOLE 20 MG CAPSULE PO SCH (08:15)
[2019-01-18] MEDS: OMEGA-3/DHA/EPA/FISH OIL 1,000 MG CAPSULE PO SCH (08:15)
[2019-01-18] MEDS: OLANZapine 10 MG RAPDIS TABLET PO SCH (08:15)
[2019-01-18] MEDS: BENZOCAINE 10% 7 GM GEL TP SCH ×2 (08:16→16:36)
[2019-01-18 08:35] VITALS: BP 100/57
[2019-01-18 10:30] VITALS: BP 110/82
[2019-01-18 11:11] LABS: GLUCOMETER DEV NAME(LOC) BV3S.; GLUCOSE,POINT OF CARE 217 MG/DL (70-110)
[2019-01-18] MEDS: INSULIN LISPRO 100 UNITS/ML SQ PRN ×2 (11:51→21:06)
[2019-01-18 16:09] VITALS: BP 112/74
[2019-01-18 16:41] LABS: GLUCOMETER DEV NAME(LOC) BV3S.; GLUCOSE,POINT OF CARE 134 MG/DL (70-110)
[2019-01-18] MEDS: DiphenhydrAMINE HCL 25 MG CAPSULE PO SCH (20:12)
[2019-01-18 20:20] LABS: GLUCOMETER DEV NAME(LOC) BV3S.; GLUCOSE,POINT OF CARE 149 MG/DL (70-110)
[2019-01-18] MEDS: INSULIN GLARGINE,HUM.REC.ANLOG 100 UNITS/ML SQ SCH (21:05)
[2019-01-19 06:19] VITALS: BP 103/66
[2019-01-19 06:26] LABS: GLUCOMETER DEV NAME(LOC) BV3S.; GLUCOSE,POINT OF CARE 96 MG/DL (70-110)
[2019-01-19] MEDS: GlipiZIDE 10 MG TABLET PO SCH ×2 (07:03→16:35)
[2019-01-19] MEDS: MetFORMIN HCL 500 MG TABLET PO SCH ×2 (07:04→16:52)
[2019-01-19 08:04] VITALS: BP 113/67
[2019-01-19] MEDS: BENZOCAINE 10% 7 GM GEL TP SCH (09:00)
[2019-01-19] MEDS: OLANZapine 10 MG RAPDIS TABLET PO SCH (09:26)
[2019-01-19] MEDS: OMEGA-3/DHA/EPA/FISH OIL 1,000 MG CAPSULE PO SCH (09:26)
[2019-01-19] MEDS: OMEPRAZOLE 20 MG CAPSULE PO SCH (09:26)
[2019-01-19] MEDS: INSULIN LISPRO 100 UNITS/ML SQ PRN ×3 (11:43→20:59)
[2019-01-19 11:51] LABS: GLUCOMETER DEV NAME(LOC) BV3S.; GLUCOSE,POINT OF CARE 214 MG/DL (70-110)
[2019-01-19 16:03] VITALS: BP 106/74
[2019-01-19 17:01] LABS: GLUCOMETER DEV NAME(LOC) BV3S.; GLUCOSE,POINT OF CARE 239 MG/DL (70-110)
[2019-01-19] MEDS: LORazepam 2 MG TABLET PO PRN (17:08)
[2019-01-19] MEDS: DiphenhydrAMINE HCL 25 MG CAPSULE PO SCH (20:20)
[2019-01-19] MEDS: INSULIN GLARGINE,HUM.REC.ANLOG 100 UNITS/ML SQ SCH (21:00)
[2019-01-19 21:26] LABS: GLUCOMETER DEV NAME(LOC) BV3S.; GLUCOSE,POINT OF CARE 143 MG/DL (70-110)
[2019-01-20 06:16] LABS: GLUCOMETER DEV NAME(LOC) BV3S.; GLUCOSE,POINT OF CARE 100 MG/DL (70-110)
[2019-01-20] MEDS: GlipiZIDE 10 MG TABLET PO SCH ×2 (06:50→16:13)
[2019-01-20] MEDS: MetFORMIN HCL 500 MG TABLET PO SCH ×2 (06:50→16:37)
[2019-01-20 07:00] VITALS: BP 117/67
[2019-01-20 08:22] VITALS: BP 136/74
[2019-01-20] MEDS: OLANZapine 10 MG RAPDIS TABLET PO SCH (08:28)
[2019-01-20] MEDS: OMEPRAZOLE 20 MG CAPSULE PO SCH (08:28)
[2019-01-20] MEDS: OMEGA-3/DHA/EPA/FISH OIL 1,000 MG CAPSULE PO SCH (08:28)
[2019-01-20] MEDS: INSULIN LISPRO 100 UNITS/ML SQ PRN ×3 (11:42→21:16)
[2019-01-20 12:26] LABS: GLUCOMETER DEV NAME(LOC) BV3S.; GLUCOSE,POINT OF CARE 159 MG/DL (70-110)
[2019-01-20] MEDS: LORazepam 2 MG TABLET PO PRN (17:03)
[2019-01-20 17:11] LABS: GLUCOMETER DEV NAME(LOC) BV3S.; GLUCOSE,POINT OF CARE 192 MG/DL (70-110)
[2019-01-20 19:09] VITALS: BP 116/78
[2019-01-20] MEDS: DiphenhydrAMINE HCL 25 MG CAPSULE PO SCH (20:58)
[2019-01-20] MEDS: INSULIN GLARGINE,HUM.REC.ANLOG 100 UNITS/ML SQ SCH (21:16)
[2019-01-20 21:41] LABS: GLUCOMETER DEV NAME(LOC) BV3S.; GLUCOSE,POINT OF CARE 173 MG/DL (70-110)
[2019-01-21 06:18] LABS: GLUCOMETER DEV NAME(LOC) BV3S.; GLUCOSE,POINT OF CARE 88 MG/DL (70-110)
[2019-01-21] MEDS: GlipiZIDE 10 MG TABLET PO SCH ×2 (06:39→16:11)
[2019-01-21] MEDS: MetFORMIN HCL 500 MG TABLET PO SCH ×2 (06:39→16:44)
[2019-01-21 06:54] VITALS: BP 105/64
[2019-01-21 08:16] VITALS: BP 101/62
[2019-01-21] MEDS: OMEPRAZOLE 20 MG CAPSULE PO SCH (08:46)
[2019-01-21] MEDS: OMEGA-3/DHA/EPA/FISH OIL 1,000 MG CAPSULE PO SCH (08:46)
[2019-01-21] MEDS: OLANZapine 10 MG RAPDIS TABLET PO SCH (08:46)
[2019-01-21 11:01] LABS: GLUCOMETER DEV NAME(LOC) BV3S.; GLUCOSE,POINT OF CARE 195 MG/DL (70-110)
[2019-01-21] MEDS: INSULIN LISPRO 100 UNITS/ML SQ PRN ×3 (11:43→20:53)
[2019-01-21 16:19] VITALS: BP 109/71
[2019-01-21 16:42] LABS: GLUCOMETER DEV NAME(LOC) BV3S.; GLUCOSE,POINT OF CARE 203 MG/DL (70-110)
[2019-01-21] MEDS: DiphenhydrAMINE HCL 25 MG CAPSULE PO SCH (20:48)
[2019-01-21 20:51] LABS: GLUCOMETER DEV NAME(LOC) BV3S.; GLUCOSE,POINT OF CARE 152 MG/DL (70-110)
[2019-01-21] MEDS: INSULIN GLARGINE,HUM.REC.ANLOG 100 UNITS/ML SQ SCH (20:53)
[2019-01-22 06:11] VITALS: BP 108/72
[2019-01-22 06:16] LABS: GLUCOMETER DEV NAME(LOC) BV3S.; GLUCOSE,POINT OF CARE 94 MG/DL (70-110)
[2019-01-22] MEDS: MetFORMIN HCL 500 MG TABLET PO SCH ×2 (06:53→16:02)
[2019-01-22] MEDS: GlipiZIDE 10 MG TABLET PO SCH ×2 (06:53→15:57)
[2019-01-22] MEDS: OLANZapine 10 MG RAPDIS TABLET PO SCH (08:21)
[2019-01-22] MEDS: OMEGA-3/DHA/EPA/FISH OIL 1,000 MG CAPSULE PO SCH (08:21)
[2019-01-22] MEDS: OMEPRAZOLE 20 MG CAPSULE PO SCH (08:21)
[2019-01-22 08:26] VITALS: BP 105/62
[2019-01-22 12:26] LABS: GLUCOMETER DEV NAME(LOC) BV3S.; GLUCOSE,POINT OF CARE 97 MG/DL (70-110)
[2019-01-22] MEDS: LORazepam 2 MG TABLET PO PRN (15:57)
[2019-01-22 16:23] VITALS: BP 115/75
[2019-01-22] MEDS: INSULIN LISPRO 100 UNITS/ML SQ PRN (16:53)
[2019-01-22 17:07] LABS: GLUCOMETER DEV NAME(LOC) BV3S.; GLUCOSE,POINT OF CARE 210 MG/DL (70-110)
[2019-01-22] MEDS: DiphenhydrAMINE HCL 25 MG CAPSULE PO SCH (20:34)
[2019-01-22] MEDS: INSULIN GLARGINE,HUM.REC.ANLOG 100 UNITS/ML SQ SCH (20:47)
[2019-01-22 20:56] LABS: GLUCOMETER DEV NAME(LOC) BV3S.; GLUCOSE,POINT OF CARE 103 MG/DL (70-110)
[2019-01-23 06:46] LABS: GLUCOMETER DEV NAME(LOC) BV3S.; GLUCOSE,POINT OF CARE 79 MG/DL (70-110)
[2019-01-23 06:48] VITALS: BP 100/62
[2019-01-23] MEDS: MetFORMIN HCL 500 MG TABLET PO SCH ×2 (07:10→16:34)
[2019-01-23] MEDS: GlipiZIDE 10 MG TABLET PO SCH ×2 (07:10→16:21)
[2019-01-23] MEDS: OMEPRAZOLE 20 MG CAPSULE PO SCH (08:05)
[2019-01-23] MEDS: OMEGA-3/DHA/EPA/FISH OIL 1,000 MG CAPSULE PO SCH (08:05)
[2019-01-23] MEDS: OLANZapine 10 MG RAPDIS TABLET PO SCH (08:05)
[2019-01-23] MEDS: INSULIN LISPRO 100 UNITS/ML SQ PRN ×2 (11:13→17:17)
[2019-01-23 11:25] LABS: GLUCOMETER DEV NAME(LOC) BV3S.; GLUCOSE,POINT OF CARE 179 MG/DL (70-110)
[2019-01-23 16:15] VITALS: BP 101/74
[2019-01-23] MEDS: NICOTINE 21 MG/24 HOUR PATCH TD PRN (17:41)
[2019-01-23 17:47] LABS: GLUCOMETER DEV NAME(LOC) BV3S.; GLUCOSE,POINT OF CARE 177 MG/DL (70-110)
[2019-01-23] MEDS: DiphenhydrAMINE HCL 25 MG CAPSULE PO SCH (20:18)
[2019-01-23] MEDS: INSULIN GLARGINE,HUM.REC.ANLOG 100 UNITS/ML SQ SCH (20:35)
[2019-01-23 21:46] LABS: GLUCOMETER DEV NAME(LOC) BV3S.; GLUCOSE,POINT OF CARE 103 MG/DL (70-110)
[2019-01-24 01:43] VITALS: BP 127/79
[2019-01-24 06:31] LABS: GLUCOMETER DEV NAME(LOC) BV3S.; GLUCOSE,POINT OF CARE 103 MG/DL (70-110)
[2019-01-24] MEDS: GlipiZIDE 10 MG TABLET PO SCH ×2 (06:35→16:51)
[2019-01-24] MEDS: MetFORMIN HCL 500 MG TABLET PO SCH ×2 (06:36→17:18)
[2019-01-24] MEDS: OMEPRAZOLE 20 MG CAPSULE PO SCH (08:42)
[2019-01-24] MEDS: OLANZapine 10 MG RAPDIS TABLET PO SCH (08:42)
[2019-01-24] MEDS: OMEGA-3/DHA/EPA/FISH OIL 1,000 MG CAPSULE PO SCH (08:43)
[2019-01-24 08:57] VITALS: BP 126/75
[2019-01-24 11:31] LABS: GLUCOMETER DEV NAME(LOC) BV3S.; GLUCOSE,POINT OF CARE 177 MG/DL (70-110)
[2019-01-24] MEDS: INSULIN LISPRO 100 UNITS/ML SQ PRN ×2 (11:31→17:19)
[2019-01-24 16:24] VITALS: BP 116/85
[2019-01-24 17:06] LABS: GLUCOMETER DEV NAME(LOC) BV3S.; GLUCOSE,POINT OF CARE 211 MG/DL (70-110)
[2019-01-24] MEDS: DiphenhydrAMINE HCL 25 MG CAPSULE PO SCH (20:56)
[2019-01-24 21:27] LABS: GLUCOMETER DEV NAME(LOC) BV3S.; GLUCOSE,POINT OF CARE 101 MG/DL (70-110)
[2019-01-24] MEDS: INSULIN GLARGINE,HUM.REC.ANLOG 100 UNITS/ML SQ SCH (21:55)
[2019-01-25] MEDS: GlipiZIDE 10 MG TABLET PO SCH ×2 (06:40→16:21)
[2019-01-25] MEDS: MetFORMIN HCL 500 MG TABLET PO SCH ×2 (06:40→16:48)
[2019-01-25 06:41] LABS: GLUCOMETER DEV NAME(LOC) BV3S.; GLUCOSE,POINT OF CARE 91 MG/DL (70-110)
[2019-01-25 06:43] VITALS: BP 116/75
[2019-01-25] MEDS: OMEPRAZOLE 20 MG CAPSULE PO SCH (08:22)
[2019-01-25] MEDS: OMEGA-3/DHA/EPA/FISH OIL 1,000 MG CAPSULE PO SCH (08:22)
[2019-01-25] MEDS: OLANZapine 10 MG RAPDIS TABLET PO SCH (08:22)
[2019-01-25 08:42] VITALS: BP 108/62
[2019-01-25] MEDS ORDERED: TUBERCULIN, PURIFIED PROTEIN DERIVATIVE 5 TU/0.1 ML SYRINGE ID ONE (11:30)
[2019-01-25] MEDS: INSULIN LISPRO 100 UNITS/ML SQ PRN ×3 (11:43→21:11)
[2019-01-25 12:11] LABS: GLUCOMETER DEV NAME(LOC) BV3S.; GLUCOSE,POINT OF CARE 149 MG/DL (70-110)
[2019-01-25 16:07] VITALS: BP 129/66
[2019-01-25 16:46] LABS: GLUCOMETER DEV NAME(LOC) BV3S.; GLUCOSE,POINT OF CARE 228 MG/DL (70-110)
[2019-01-25 21:08] LABS: GLUCOMETER DEV NAME(LOC) BV3S.; GLUCOSE,POINT OF CARE 168 MG/DL (70-110)
[2019-01-25] MEDS: INSULIN GLARGINE,HUM.REC.ANLOG 100 UNITS/ML SQ SCH (21:11)
[2019-01-25] MEDS: DiphenhydrAMINE HCL 25 MG CAPSULE PO SCH (21:15)
[2019-01-26 06:31] VITALS: BP 103/61
[2019-01-26 06:41] LABS: GLUCOMETER DEV NAME(LOC) BV3S.; GLUCOSE,POINT OF CARE 127 MG/DL (70-110)
[2019-01-26] MEDS: GlipiZIDE 10 MG TABLET PO SCH ×2 (06:43→16:44)
[2019-01-26] MEDS: MetFORMIN HCL 500 MG TABLET PO SCH ×2 (06:44→16:44)
[2019-01-26] MEDS: OLANZapine 10 MG RAPDIS TABLET PO SCH (08:01)
[2019-01-26] MEDS: OMEGA-3/DHA/EPA/FISH OIL 1,000 MG CAPSULE PO SCH (08:01)
[2019-01-26] MEDS: OMEPRAZOLE 20 MG CAPSULE PO SCH (08:01)
[2019-01-26 08:25] VITALS: BP 100/54
[2019-01-26 09:40] VITALS: BP 108/60
[2019-01-26 11:13] LABS: GLUCOMETER DEV NAME(LOC) BV3S.; GLUCOSE,POINT OF CARE 128 MG/DL (70-110)
[2019-01-26 16:04] VITALS: BP 127/75
[2019-01-26 16:10] LABS: GLUCOMETER DEV NAME(LOC) BV3S.; GLUCOSE,POINT OF CARE 210 MG/DL (70-110)
[2019-01-26] MEDS: INSULIN LISPRO 100 UNITS/ML SQ PRN (16:49)
[2019-01-26] MEDS: ZOLPIDEM TARTRATE 10 MG TABLET PO PRN (20:00)
[2019-01-26] MEDS: DiphenhydrAMINE HCL 25 MG CAPSULE PO SCH (20:00)
[2019-01-26] MEDS: INSULIN GLARGINE,HUM.REC.ANLOG 100 UNITS/ML SQ SCH (20:13)
[2019-01-26 20:15] LABS: GLUCOMETER DEV NAME(LOC) BV3S.; GLUCOSE,POINT OF CARE 111 MG/DL (70-110)
[2019-01-27] MEDS: MetFORMIN HCL 500 MG TABLET PO SCH ×2 (06:33→16:04)
[2019-01-27] MEDS: GlipiZIDE 10 MG TABLET PO SCH ×2 (06:33→16:04)
[2019-01-27 06:37] LABS: GLUCOMETER DEV NAME(LOC) BV3S.; GLUCOSE,POINT OF CARE 109 MG/DL (70-110)
[2019-01-27 06:46] VITALS: BP 118/70
[2019-01-27] MEDS: OMEPRAZOLE 20 MG CAPSULE PO SCH (08:07)
[2019-01-27] MEDS: OMEGA-3/DHA/EPA/FISH OIL 1,000 MG CAPSULE PO SCH (08:07)
[2019-01-27] MEDS: OLANZapine 10 MG RAPDIS TABLET PO SCH (08:07)
[2019-01-27 08:11] VITALS: BP 109/71
[2019-01-27] MEDS: FluPHENAZine DECANOATE 25 MG/ML IM SCH (08:27)
[2019-01-27 11:21] LABS: GLUCOMETER DEV NAME(LOC) BV3S.; GLUCOSE,POINT OF CARE 135 MG/DL (70-110)
[2019-01-27 16:08] VITALS: BP 117/74
[2019-01-27] MEDS: INSULIN LISPRO 100 UNITS/ML SQ PRN (16:44)
[2019-01-27 16:56] LABS: GLUCOMETER DEV NAME(LOC) BV3S.; GLUCOSE,POINT OF CARE 151 MG/DL (70-110)
[2019-01-27] MEDS: DiphenhydrAMINE HCL 25 MG CAPSULE PO SCH (20:22)
[2019-01-27] MEDS: INSULIN GLARGINE,HUM.REC.ANLOG 100 UNITS/ML SQ SCH (20:23)
[2019-01-27] MEDS: ZOLPIDEM TARTRATE 10 MG TABLET PO PRN (20:23)
[2019-01-27 20:36] LABS: GLUCOMETER DEV NAME(LOC) BV3S.; GLUCOSE,POINT OF CARE 79 MG/DL (70-110)
[2019-01-28 06:37] LABS: GLUCOMETER DEV NAME(LOC) BV3S.; GLUCOSE,POINT OF CARE 98 MG/DL (70-110)
[2019-01-28] MEDS: GlipiZIDE 10 MG TABLET PO SCH ×2 (06:43→16:43)
[2019-01-28] MEDS: MetFORMIN HCL 500 MG TABLET PO SCH ×2 (06:43→16:43)
[2019-01-28 08:07] VITALS: BP 107/65
[2019-01-28] MEDS: OMEPRAZOLE 20 MG CAPSULE PO SCH (08:27)
[2019-01-28] MEDS: OLANZapine 10 MG RAPDIS TABLET PO SCH (08:27)
[2019-01-28] MEDS: OMEGA-3/DHA/EPA/FISH OIL 1,000 MG CAPSULE PO SCH (08:27)
[2019-01-28 11:57] LABS: GLUCOMETER DEV NAME(LOC) BV3S.; GLUCOSE,POINT OF CARE 120 MG/DL (70-110)
[2019-01-28 16:18] VITALS: BP 115/78
[2019-01-28 17:11] LABS: GLUCOMETER DEV NAME(LOC) BV3S.; GLUCOSE,POINT OF CARE 177 MG/DL (70-110)
[2019-01-28] MEDS: INSULIN LISPRO 100 UNITS/ML SQ PRN (17:34)
[2019-01-28] MEDS: DiphenhydrAMINE HCL 25 MG CAPSULE PO SCH (20:41)
[2019-01-28] MEDS: ZOLPIDEM TARTRATE 10 MG TABLET PO PRN (20:41)
[2019-01-28] MEDS: INSULIN GLARGINE,HUM.REC.ANLOG 100 UNITS/ML SQ SCH (20:59)
[2019-01-28 21:01] LABS: GLUCOMETER DEV NAME(LOC) BV3S.; GLUCOSE,POINT OF CARE 79 MG/DL (70-110)
[2019-01-29 06:41] LABS: GLUCOMETER DEV NAME(LOC) BV3S.; GLUCOSE,POINT OF CARE 104 MG/DL (70-110)
[2019-01-29] MEDS: GlipiZIDE 10 MG TABLET PO SCH ×2 (06:57→16:20)
[2019-01-29] MEDS: MetFORMIN HCL 500 MG TABLET PO SCH ×2 (06:57→16:20)
[2019-01-29 07:19] VITALS: BP 107/80
[2019-01-29 08:18] VITALS: BP 100/60
[2019-01-29] MEDS: OMEPRAZOLE 20 MG CAPSULE PO SCH (08:24)
[2019-01-29] MEDS: OMEGA-3/DHA/EPA/FISH OIL 1,000 MG CAPSULE PO SCH (08:24)
[2019-01-29] MEDS: OLANZapine 10 MG RAPDIS TABLET PO SCH (08:24)
[2019-01-29] MEDS: INSULIN LISPRO 100 UNITS/ML SQ PRN ×2 (11:36→16:52)
[2019-01-29 11:42] LABS: GLUCOMETER DEV NAME(LOC) BV3S.; GLUCOSE,POINT OF CARE 181 MG/DL (70-110)
[2019-01-29 16:08] VITALS: BP 116/77
[2019-01-29 17:00] LABS: GLUCOMETER DEV NAME(LOC) BV3S.; GLUCOSE,POINT OF CARE 208 MG/DL (70-110)
[2019-01-29] MEDS: DiphenhydrAMINE HCL 25 MG CAPSULE PO SCH (21:13)
[2019-01-29] MEDS: INSULIN GLARGINE,HUM.REC.ANLOG 100 UNITS/ML SQ SCH (21:16)
[2019-01-29 21:27] LABS: GLUCOMETER DEV NAME(LOC) BV3S.; GLUCOSE,POINT OF CARE 84 MG/DL (70-110)
[2019-01-30] MEDS: GlipiZIDE 10 MG TABLET PO SCH ×2 (06:43→16:39)
[2019-01-30] MEDS: MetFORMIN HCL 500 MG TABLET PO SCH ×2 (06:43→16:54)
[2019-01-30 07:00] VITALS: BP 105/60
[2019-01-30 07:16] LABS: GLUCOMETER DEV NAME(LOC) BV3S.; GLUCOSE,POINT OF CARE 98 MG/DL (70-110)
[2019-01-30] MEDS: OLANZapine 10 MG RAPDIS TABLET PO SCH (08:19)
[2019-01-30] MEDS: OMEPRAZOLE 20 MG CAPSULE PO SCH (08:19)
[2019-01-30] MEDS: OMEGA-3/DHA/EPA/FISH OIL 1,000 MG CAPSULE PO SCH (08:19)
[2019-01-30 08:38] VITALS: BP 114/69
[2019-01-30 11:05] LABS: GLUCOMETER DEV NAME(LOC) BV3S.; GLUCOSE,POINT OF CARE 196 MG/DL (70-110)
[2019-01-30] MEDS: INSULIN LISPRO 100 UNITS/ML SQ PRN ×3 (11:45→20:53)
[2019-01-30 16:26] VITALS: BP 118/77
[2019-01-30 16:37] LABS: GLUCOMETER DEV NAME(LOC) BV3S.; GLUCOSE,POINT OF CARE 238 MG/DL (70-110)
[2019-01-30] MEDS: BACITRACIN 28.4 GM OINTMENT TP SCH (18:48)
[2019-01-30] MEDS: DiphenhydrAMINE HCL 25 MG CAPSULE PO SCH (20:51)
[2019-01-30] MEDS: INSULIN GLARGINE,HUM.REC.ANLOG 100 UNITS/ML SQ SCH (20:53)
[2019-01-30 21:21] LABS: GLUCOMETER DEV NAME(LOC) BV3S.; GLUCOSE,POINT OF CARE 150 MG/DL (70-110)
[2019-01-31 03:18] VITALS: BP 117/74
[2019-01-31 06:36] LABS: GLUCOMETER DEV NAME(LOC) BV3S.; GLUCOSE,POINT OF CARE 108 MG/DL (70-110)
[2019-01-31] MEDS: GlipiZIDE 10 MG TABLET PO SCH ×2 (06:42→16:02)
[2019-01-31] MEDS: MetFORMIN HCL 500 MG TABLET PO SCH ×2 (06:42→16:03)
[2019-01-31] MEDS: BACITRACIN 28.4 GM OINTMENT TP SCH ×2 (08:09→17:00)
[2019-01-31] MEDS: OLANZapine 10 MG RAPDIS TABLET PO SCH (08:09)
[2019-01-31] MEDS: OMEPRAZOLE 20 MG CAPSULE PO SCH (08:09)
[2019-01-31] MEDS: OMEGA-3/DHA/EPA/FISH OIL 1,000 MG CAPSULE PO SCH (08:09)
[2019-01-31 08:28] VITALS: BP 115/67
[2019-01-31] MEDS: INSULIN LISPRO 100 UNITS/ML SQ PRN ×2 (11:50→17:15)
[2019-01-31 12:01] LABS: GLUCOMETER DEV NAME(LOC) BV3S.; GLUCOSE,POINT OF CARE 156 MG/DL (70-110)
[2019-01-31 16:06] VITALS: BP 128/84
[2019-01-31 17:21] LABS: GLUCOMETER DEV NAME(LOC) BV3S.; GLUCOSE,POINT OF CARE 264 MG/DL (70-110)
[2019-01-31] MEDS: DiphenhydrAMINE HCL 25 MG CAPSULE PO SCH (20:13)
[2019-01-31 20:27] LABS: GLUCOMETER DEV NAME(LOC) BV3S.; GLUCOSE,POINT OF CARE 80 MG/DL (70-110)
[2019-01-31] MEDS: INSULIN GLARGINE,HUM.REC.ANLOG 100 UNITS/ML SQ SCH (21:24)
[2019-01-31 21:27] LABS: GLUCOMETER DEV NAME(LOC) BV3S.; GLUCOSE,POINT OF CARE 112 MG/DL (70-110)
[2019-02-01 05:32] VITALS: BP 140/100
[2019-02-01 06:27] LABS: GLUCOMETER DEV NAME(LOC) BV3S.; GLUCOSE,POINT OF CARE 97 MG/DL (70-110)
[2019-02-01] MEDS: GlipiZIDE 10 MG TABLET PO SCH ×2 (06:35→16:46)
[2019-02-01] MEDS: MetFORMIN HCL 500 MG TABLET PO SCH ×2 (06:35→16:46)
[2019-02-01] MEDS: OMEGA-3/DHA/EPA/FISH OIL 1,000 MG CAPSULE PO SCH (08:02)
[2019-02-01] MEDS: BACITRACIN 28.4 GM OINTMENT TP SCH ×2 (08:02→17:18)
[2019-02-01] MEDS: OLANZapine 10 MG RAPDIS TABLET PO SCH (08:02)
[2019-02-01] MEDS: OMEPRAZOLE 20 MG CAPSULE PO SCH (08:02)
[2019-02-01 08:17] VITALS: BP 109/70
[2019-02-01 11:11] LABS: GLUCOMETER DEV NAME(LOC) BV3S.; GLUCOSE,POINT OF CARE 112 MG/DL (70-110)
[2019-02-01 16:17] VITALS: BP 114/79
[2019-02-01] MEDS: INSULIN LISPRO 100 UNITS/ML SQ PRN (16:21)
[2019-02-01 16:26] LABS: GLUCOMETER DEV NAME(LOC) BV3S.; GLUCOSE,POINT OF CARE 210 MG/DL (70-110)
[2019-02-01] MEDS: DiphenhydrAMINE HCL 25 MG CAPSULE PO SCH (20:35)
[2019-02-01] MEDS: INSULIN GLARGINE,HUM.REC.ANLOG 100 UNITS/ML SQ SCH (20:36)
[2019-02-01 20:56] LABS: GLUCOMETER DEV NAME(LOC) BV3S.; GLUCOSE,POINT OF CARE 102 MG/DL (70-110)
[2019-02-02] MEDS: GlipiZIDE 10 MG TABLET PO SCH ×2 (06:31→16:37)
[2019-02-02] MEDS: MetFORMIN HCL 500 MG TABLET PO SCH ×2 (06:31→16:38)
[2019-02-02 06:34] VITALS: BP 123/63
[2019-02-02 06:36] LABS: GLUCOMETER DEV NAME(LOC) BV3S.; GLUCOSE,POINT OF CARE 97 MG/DL (70-110)
[2019-02-02 08:19] VITALS: BP 117/62
[2019-02-02] MEDS: NICOTINE 21 MG/24 HOUR PATCH TD PRN (08:52)
[2019-02-02] MEDS: LORazepam 2 MG TABLET PO PRN (08:52)
[2019-02-02] MEDS: OMEGA-3/DHA/EPA/FISH OIL 1,000 MG CAPSULE PO SCH (08:52)
[2019-02-02] MEDS: OLANZapine 10 MG RAPDIS TABLET PO SCH (08:52)
[2019-02-02] MEDS: OMEPRAZOLE 20 MG CAPSULE PO SCH (08:52)
[2019-02-02] MEDS: BACITRACIN 28.4 GM OINTMENT TP SCH ×2 (08:53→16:38)
[2019-02-02] MEDS: INSULIN LISPRO 100 UNITS/ML SQ PRN ×3 (10:57→20:43)
[2019-02-02 14:08] LABS: GLUCOMETER DEV NAME(LOC) BV3S.; GLUCOSE,POINT OF CARE 232 MG/DL (70-110)
[2019-02-02 16:07] VITALS: BP 112/72
[2019-02-02 16:56] LABS: GLUCOMETER DEV NAME(LOC) BV3S.; GLUCOSE,POINT OF CARE 202 MG/DL (70-110)
[2019-02-02] MEDS: DiphenhydrAMINE HCL 25 MG CAPSULE PO SCH (20:07)
[2019-02-02 20:18] LABS: GLUCOMETER DEV NAME(LOC) BV3S.; GLUCOSE,POINT OF CARE 148 MG/DL (70-110)
[2019-02-02] MEDS: INSULIN GLARGINE,HUM.REC.ANLOG 100 UNITS/ML SQ SCH (20:44)
[2019-02-03 05:49] VITALS: BP 115/70
[2019-02-03] MEDS: GlipiZIDE 10 MG TABLET PO SCH ×2 (06:32→16:08)
[2019-02-03] MEDS: MetFORMIN HCL 500 MG TABLET PO SCH ×2 (06:32→16:09)
[2019-02-03 06:40] LABS: GLUCOMETER DEV NAME(LOC) BV3S.; GLUCOSE,POINT OF CARE 122 MG/DL (70-110)
[2019-02-03] MEDS: OMEGA-3/DHA/EPA/FISH OIL 1,000 MG CAPSULE PO SCH (08:19)
[2019-02-03] MEDS: OMEPRAZOLE 20 MG CAPSULE PO SCH (08:19)
[2019-02-03] MEDS: OLANZapine 10 MG RAPDIS TABLET PO SCH (08:20)
[2019-02-03] MEDS: BACITRACIN 28.4 GM OINTMENT TP SCH ×2 (08:20→16:09)
[2019-02-03 08:38] VITALS: BP 123/87
[2019-02-03 11:12] LABS: GLUCOMETER DEV NAME(LOC) BV3S.; GLUCOSE,POINT OF CARE 144 MG/DL (70-110)
[2019-02-03] MEDS: INSULIN LISPRO 100 UNITS/ML SQ PRN ×3 (11:42→20:29)
[2019-02-03 16:08] VITALS: BP 110/72
[2019-02-03] MEDS: LORazepam 2 MG TABLET PO PRN (16:09)
[2019-02-03 16:53] LABS: GLUCOMETER DEV NAME(LOC) BV3S.; GLUCOSE,POINT OF CARE 180 MG/DL (70-110)
[2019-02-03] MEDS: DiphenhydrAMINE HCL 25 MG CAPSULE PO SCH (20:23)
[2019-02-03] MEDS: INSULIN GLARGINE,HUM.REC.ANLOG 100 UNITS/ML SQ SCH (20:25)
[2019-02-03 20:34] LABS: GLUCOMETER DEV NAME(LOC) BV3S.; GLUCOSE,POINT OF CARE 154 MG/DL (70-110)
[2019-02-04] MEDS: GlipiZIDE 10 MG TABLET PO SCH ×2 (06:34→16:39)
[2019-02-04] MEDS: MetFORMIN HCL 500 MG TABLET PO SCH ×2 (06:34→16:58)
[2019-02-04 06:35] VITALS: BP 110/65
[2019-02-04 06:42] LABS: GLUCOMETER DEV NAME(LOC) BV3S.; GLUCOSE,POINT OF CARE 92 MG/DL (70-110)
[2019-02-04] MEDS: OMEPRAZOLE 20 MG CAPSULE PO SCH (08:06)
[2019-02-04] MEDS: OMEGA-3/DHA/EPA/FISH OIL 1,000 MG CAPSULE PO SCH (08:06)
[2019-02-04] MEDS: BACITRACIN 28.4 GM OINTMENT TP SCH ×2 (08:06→16:58)
[2019-02-04] MEDS: OLANZapine 10 MG RAPDIS TABLET PO SCH (08:06)
[2019-02-04 08:19] VITALS: BP 100/61
[2019-02-04 10:00] VITALS: BP 112/72
[2019-02-04 11:07] LABS: GLUCOMETER DEV NAME(LOC) BV3S.; GLUCOSE,POINT OF CARE 74 MG/DL (70-110)
[2019-02-04 16:03] VITALS: BP 118/70
[2019-02-04] MEDS ORDERED: ZOLP10TA2 PO (16:27)
[2019-02-04] MEDS ORDERED: OLAN10TA22 PO (16:27)
[2019-02-04] MEDS ORDERED: FLUD25I IM (16:27)
[2019-02-04] MEDS ORDERED: LORA-1001 PO (16:27)
[2019-02-04] MEDS ORDERED: OLAN5TAB30 PO (16:27)
[2019-02-04] MEDS ORDERED: NICO-704 TD (16:27)
[2019-02-04] MEDS ORDERED: OMEG-135 PO (16:27)
[2019-02-04] MEDS ORDERED: DIPH25 PO (16:27)
[2019-02-04] MEDS: INSULIN LISPRO 100 UNITS/ML SQ PRN (16:47)
[2019-02-04 16:57] LABS: GLUCOMETER DEV NAME(LOC) BV3S.; GLUCOSE,POINT OF CARE 174 MG/DL (70-110)
[2019-02-04] MEDS: DiphenhydrAMINE HCL 25 MG CAPSULE PO SCH (20:23)
[2019-02-04] MEDS: INSULIN GLARGINE,HUM.REC.ANLOG 100 UNITS/ML SQ SCH (21:03)
[2019-02-04 21:22] LABS: GLUCOMETER DEV NAME(LOC) BV3S.; GLUCOSE,POINT OF CARE 111 MG/DL (70-110)
[2019-02-05 06:07] VITALS: BP 126/82
[2019-02-05 06:12] LABS: GLUCOMETER DEV NAME(LOC) BV3S.; GLUCOSE,POINT OF CARE 85 MG/DL (70-110)
[2019-02-05] MEDS: GlipiZIDE 10 MG TABLET PO SCH (07:05)
[2019-02-05] MEDS: MetFORMIN HCL 500 MG TABLET PO SCH (07:05)
[2019-02-05 08:08] VITALS: BP 128/77
[2019-02-05] MEDS: OMEPRAZOLE 20 MG CAPSULE PO SCH (08:51)
[2019-02-05] MEDS: OMEGA-3/DHA/EPA/FISH OIL 1,000 MG CAPSULE PO SCH (08:51)
[2019-02-05] MEDS: OLANZapine 10 MG RAPDIS TABLET PO SCH (08:51)
[2019-02-05] MEDS: BACITRACIN 28.4 GM OINTMENT TP SCH (08:51)
[2019-02-05] MEDS: INSULIN LISPRO 100 UNITS/ML SQ PRN (12:01)
[2019-02-05 12:08] LABS: GLUCOMETER DEV NAME(LOC) BV3S.; GLUCOSE,POINT OF CARE 159 MG/DL (70-110)
[2019-02-05] MEDS ORDERED: FLUD25I IM (13:56)
[2019-02-05] MEDS ORDERED: OLAN10TA20 PO (13:56)
[2019-02-05] MEDS ORDERED: OMEG-12 PO (13:56)
[2019-02-05] MEDS ORDERED: DIPH25CA85 PO (13:56)
== END 2019-02-05 16:00 | disposition home or self-care (01) | DRG 750 ==
LOC: B2S 12:25 → B3A 01-05 14:08
PROVIDERS: ADMIT Psychiatry & Neurology Psychiatry; ATTEND Psychiatry & Neurology Psychiatry
DX: F20.5 Residual schizophrenia (principal); F20.1 Disorganized schizophrenia; R45.851 Suicidal ideations; E11.9 Type 2 diabetes mellitus without complications; G44.209 Tension-type headache, unspecified, not intractable; G47.00 Insomnia, unspecified; I10 Essential (primary) hypertension; K21.9 Gastro-esophageal reflux disease without esophagitis; Z59.0 Homelessness; Z79.4 Long term (current) use of insulin; Z91.14 Patient's other noncompliance with medication regimen
CPT/HCPCS: 83036; 84439; 84443; J1815; J2680

== ENCOUNTER 2024-04-07 14:39 | Inpatient (IN) | payer MEDICAID ==
[~2024-04-07] VITALS: Ht 152.4 cm; Wt 52.7 kg
[~2024-04-07 14:39] MED LIST changes: +ACET-2247 PO; +ARIP10TA38 PO; -BENZ2TAB10 PO; -DEPOP150I IM; -DIPH25 PO; +DOCU-385 PO; -DSS100 PO; -GLIP10 PO; -HALO10 PO; +INSU100V SQ; +LOSA-381 PO; -METF-960 PO; +MIRT-93 PO; -MVITFE PO; +OLAN5TAB94 PO; -OMEG-135 PO; -OMEP20 PO; -PALI234D IM; +TRAZ-252 PO
[2024-04-07] MEDS ORDERED: ZOLPIDEM TARTRATE 10 MG TABLET PO PRN (17:30)
[2024-04-07] MEDS ORDERED: OLANZapine 5 MG RAPDIS TABLET PO PRN (17:30)
[2024-04-07] MEDS: MIRTAZAPINE 30 MG TABLET PO SCH (21:00)
[2024-04-08] MEDS ORDERED: DEXTROSE 50%-WATER 25 GM/50 ML SYRINGE IVP PRN (05:30)
[2024-04-08] MEDS ORDERED: GLUCAGON,HUMAN RECOMBINANT 1 MG VIAL SQ PRN (05:45)
[2024-04-08] MEDS ORDERED: INFLUENZA VIRUS VACCINE TVS (6MO+) 2024-25/PF 45 MCG/0.5 ML SYRINGE IM. ONE (05:45)
[2024-04-08 07:01] LABS: GLUCOMETER DEV NAME(LOC) 3EX.2; GLUCOSE,POINT OF CARE 136 MG/DL (70-110)
[2024-04-08] MEDS ORDERED: PETROLATUM,WHITE 28 GM JELLY TP PRN (08:00)
[2024-04-08] MEDS ORDERED: CloNIDine HCL 0.1 MG TABLET PO PRN (08:00)
[2024-04-08] MEDS ORDERED: GuaiFENesin/D-METHORPHAN [SUGAR-FREE] 200-20MG/10 ML SYRUP UDCUP PO PRN (08:00)
[2024-04-08] MEDS ORDERED: MAGNESIUM HYDROXIDE SUSPENSION 30 ML UDCUP PO PRN (08:00)
[2024-04-08] MEDS ORDERED: IBUPROFEN 400 MG TABLET PO PRN (08:00)
[2024-04-08] MEDS ORDERED: MAG HYDROX/ALUMINUM HYD/SIMETH ES 30 ML SUSPENSION UDCUP PO PRN (08:00)
[2024-04-08] MEDS ORDERED: NICOTINE 14 MG/24 HOUR PATCH TD PRN (08:00)
[2024-04-08] MEDS ORDERED: LOPERAMIDE HCL 2 MG CAPSULE PO PRN (08:00)
[2024-04-08] MEDS ORDERED: ONDANSETRON 4 MG TABLET PO PRN (08:00)
[2024-04-08] MEDS ORDERED: ACETAMINOPHEN 325 MG TABLET PO PRN (08:00)
[2024-04-08] MEDS ORDERED: DOCUSATE SODIUM 100 MG CAPSULE PO PRN (08:00)
[2024-04-08] MEDS ORDERED: ALBUTEROL SULFATE HFA 90 MCG/PUFF 8 GM INHALER IH PRN (08:00)
[2024-04-08] MEDS: DOCUSATE SODIUM 100 MG/10 ML LIQUID UDCUP PO SCH (09:00)
[2024-04-08] MEDS: ARIPiprazole 10 MG TABLET PO SCH (09:32)
[2024-04-08] MEDS: ETHYL ALCOHOL 62% ANTISEPTIC NASAL SANITIZER 0.6 ML AMPUL NASAL SCH (09:32)
[2024-04-08] MEDS: LOSARTAN POTASSIUM 25 MG TABLET PO SCH (09:32)
[2024-04-08] MEDS: INSULIN LISPRO 100 UNITS/ML SQ PRN (12:13)
[2024-04-08 12:15] LABS: GLUCOMETER DEV NAME(LOC) 3EX.2; GLUCOSE,POINT OF CARE 234 MG/DL (70-110)
[2024-04-08 17:11] LABS: GLUCOMETER DEV NAME(LOC) 3EX.2; GLUCOSE,POINT OF CARE 234 MG/DL (70-110)
[2024-04-08 20:00] VITALS: BP 104/58; PULSE 66; RESP 18; TEMP 97.8; O2SAT 99
[2024-04-08 21:36] LABS: GLUCOMETER DEV NAME(LOC) 3EX.2; GLUCOSE,POINT OF CARE 222 MG/DL (70-110)
[2024-04-08] MEDS: TraZODone HCL 50 MG TABLET PO SCH (22:04)
[2024-04-08] MEDS: INSULIN GLARGINE,HUM.REC.ANLOG 100 UNITS/ML SQ SCH (22:12)
[2024-04-09] MEDS ORDERED: GLUCAGON,HUMAN RECOMBINANT 1 MG VIAL SQ PRN
[2024-04-09 06:46] LABS: GLUCOMETER DEV NAME(LOC) 3EX.2; GLUCOSE,POINT OF CARE 150 MG/DL (70-110)
[2024-04-09 07:32] LABS: THYROID STIMULATING HORMONE 4.77 uIU/mL (0.36-3.74)
[2024-04-09 08:02] LABS: CHOL/HDL RATIO 3.8 (3.9-5.7)
[2024-04-09 08:33] VITALS: BP 95/57; PULSE 73; RESP 17; TEMP 96.9; O2SAT 100
[2024-04-09 12:25] LABS: GLUCOMETER DEV NAME(LOC) 3EX.2; GLUCOSE,POINT OF CARE 91 MG/DL (70-110)
[2024-04-09 17:46] LABS: GLUCOMETER DEV NAME(LOC) 3EX.2; GLUCOSE,POINT OF CARE 199 MG/DL (70-110)
[2024-04-09 20:46] VITALS: BP 134/77; PULSE 73; RESP 18; TEMP 97.4; O2SAT 100
[2024-04-09 22:21] LABS: GLUCOMETER DEV NAME(LOC) 3EX.2; GLUCOSE,POINT OF CARE 203 MG/DL (70-110)
[2024-04-10 06:31] LABS: GLUCOMETER DEV NAME(LOC) 3EX.2; GLUCOSE,POINT OF CARE 131 MG/DL (70-110)
[2024-04-10 08:53] VITALS: BP 113/69; PULSE 62; RESP 18; TEMP 97.5; O2SAT 100
[2024-04-10 11:25] LABS: GLUCOMETER DEV NAME(LOC) 3EX.2; GLUCOSE,POINT OF CARE 184 MG/DL (70-110)
[2024-04-10 17:06] LABS: GLUCOMETER DEV NAME(LOC) 3EX.2; GLUCOSE,POINT OF CARE 261 MG/DL (70-110)
[2024-04-10 20:41] VITALS: BP 140/91; PULSE 77; RESP 18; TEMP 98.5; O2SAT 100
[2024-04-10 22:16] LABS: GLUCOMETER DEV NAME(LOC) 3EX.2; GLUCOSE,POINT OF CARE 329 MG/DL (70-110)
[2024-04-11 06:52] LABS: GLUCOMETER DEV NAME(LOC) 3EX.2; GLUCOSE,POINT OF CARE 165 MG/DL (70-110)
[2024-04-11 11:06] LABS: CREATININE 1.56 mg/dL (0.60-1.30); POTASSIUM 4.8 mmol/L (3.5-5.1)
[2024-04-11 11:09] LABS: BASOPHILS % (AUTO) 0.8 % (0.0-2.0); EOSINOPHILS % (AUTO) 2.8 % (1.0-6.0); HEMATOCRIT 34.3 % (36-46); HEMOGLOBIN 10.5 g/dL (12.0-16.0); LYMPHOCYTES # (AUTO) 1.4 K/uL (1.0-4.8); LYMPHOCYTES % (AUTO) 24.1 % (22.0-44.0); MEAN CORPUSCULAR HEMOGLOBIN 22.9 pg (26.0-34.0); MEAN CORPUSCULAR HGB CONC 30.6 G/dL (31.0-37.0); MEAN CORPUSCULAR VOLUME 75 fL (80-100); MONOCYTES # (AUTO) 0.3 K/uL (0.1-1.0); MONOCYTES % (AUTO) 5.8 % (2.0-9.0); NEUTROPHILS # (AUTO) 3.9 K/uL (1.8-7.7); NEUTROPHILS % (AUTO) 66.5 % (40.0-70.0); PLATELET COUNT (AUTO) 287 K/uL (150-450); RED BLOOD CELL COUNT(AUTO) 4.59 MIL/uL (4.00-5.20); RED CELL DISTRIBUTION WIDTH 16.4 % (11.5-14.5); WHITE BLOOD COUNT (AUTO) 5.8 K/uL (4.5-11.0)
[2024-04-11 11:45] LABS: GLUCOMETER DEV NAME(LOC) 3EX.2; GLUCOSE,POINT OF CARE 296 MG/DL (70-110)
[2024-04-11 14:04] VITALS: BP 118/73; PULSE 74; RESP 18; TEMP 97.4; O2SAT 99
[2024-04-11 16:37] LABS: GLUCOMETER DEV NAME(LOC) 3EX.2; GLUCOSE,POINT OF CARE 205 MG/DL (70-110)
[2024-04-11 21:21] LABS: GLUCOMETER DEV NAME(LOC) 3EX.2; GLUCOSE,POINT OF CARE 207 MG/DL (70-110)
[2024-04-11 21:57] VITALS: BP 130/74; PULSE 74; RESP 18; TEMP 98; O2SAT 100
[2024-04-12 07:16] LABS: GLUCOMETER DEV NAME(LOC) 3EX.2; GLUCOSE,POINT OF CARE 188 MG/DL (70-110)
[2024-04-12 08:00] VITALS: BP 97/60; PULSE 66; RESP 18; TEMP 97.1; O2SAT 97
[2024-04-12 08:45] VITALS: BP 121/70; PULSE 68
[2024-04-12 11:40] LABS: GLUCOMETER DEV NAME(LOC) 3EX.2; GLUCOSE,POINT OF CARE 252 MG/DL (70-110)
[2024-04-12 16:36] LABS: GLUCOMETER DEV NAME(LOC) 3EX.2; GLUCOSE,POINT OF CARE 252 MG/DL (70-110)
[2024-04-12 20:41] LABS: GLUCOMETER DEV NAME(LOC) 3EX.2; GLUCOSE,POINT OF CARE 325 MG/DL (70-110)
[2024-04-12 22:39] VITALS: BP 153/79; PULSE 82; RESP 18; TEMP 98; O2SAT 100
[2024-04-13 06:45] LABS: GLUCOMETER DEV NAME(LOC) 3EX.2; GLUCOSE,POINT OF CARE 237 MG/DL (70-110)
[2024-04-13 09:00] VITALS: BP 111/73; PULSE 81; RESP 16; TEMP 97.8; O2SAT 99
[2024-04-13 12:06] LABS: GLUCOMETER DEV NAME(LOC) 3EX.2; GLUCOSE,POINT OF CARE 370 MG/DL (70-110)
[2024-04-13 16:51] LABS: GLUCOMETER DEV NAME(LOC) 3EX.2; GLUCOSE,POINT OF CARE 370 MG/DL (70-110)
[2024-04-13 20:23] VITALS: BP 119/76; PULSE 82; RESP 18; TEMP 97.4; O2SAT 98
[2024-04-13 20:26] LABS: GLUCOMETER DEV NAME(LOC) 3EX.2; GLUCOSE,POINT OF CARE 269 MG/DL (70-110)
[2024-04-14 08:26] LABS: GLUCOMETER DEV NAME(LOC) 3EX.2; GLUCOSE,POINT OF CARE 240 MG/DL (70-110)
[2024-04-14 10:30] VITALS: BP 128/74; PULSE 87; RESP 18; TEMP 97.5; O2SAT 100
[2024-04-14 11:25] LABS: GLUCOMETER DEV NAME(LOC) 3EX.2; GLUCOSE,POINT OF CARE 231 MG/DL (70-110)
[2024-04-14 16:21] LABS: GLUCOMETER DEV NAME(LOC) 3EX.2; GLUCOSE,POINT OF CARE 280 MG/DL (70-110)
[2024-04-14 20:11] LABS: GLUCOMETER DEV NAME(LOC) 3EX.2; GLUCOSE,POINT OF CARE 218 MG/DL (70-110)
[2024-04-14 21:02] VITALS: BP 121/73; PULSE 89; RESP 18; TEMP 97.7; O2SAT 98
[2024-04-15 06:51] LABS: GLUCOMETER DEV NAME(LOC) 3E.C; GLUCOSE,POINT OF CARE 225 MG/DL (70-110)
[2024-04-15 10:19] VITALS: BP 111/75; PULSE 83; RESP 18; TEMP 98.3; O2SAT 99
[2024-04-15 11:31] LABS: GLUCOMETER DEV NAME(LOC) 3E.C; GLUCOSE,POINT OF CARE 241 MG/DL (70-110)
[2024-04-15 16:31] LABS: GLUCOMETER DEV NAME(LOC) 3E.C; GLUCOSE,POINT OF CARE 285 MG/DL (70-110)
[2024-04-15 20:16] LABS: GLUCOMETER DEV NAME(LOC) 3E.C; GLUCOSE,POINT OF CARE 249 MG/DL (70-110)
[2024-04-15 23:07] VITALS: BP 149/84; PULSE 91; RESP 17; TEMP 98; O2SAT 100
[2024-04-16 07:06] LABS: GLUCOMETER DEV NAME(LOC) 3EX.2; GLUCOSE,POINT OF CARE 190 MG/DL (70-110)
[2024-04-16 08:42] VITALS: BP 110/76; PULSE 87; RESP 18; TEMP 97.2; O2SAT 100
[2024-04-16] MEDS: TUBERCULIN, PURIFIED PROTEIN DERIVATIVE 5 TU/0.1 ML SYRINGE ID ONE (09:01)
[2024-04-16 11:21] LABS: GLUCOMETER DEV NAME(LOC) 3EX.2; GLUCOSE,POINT OF CARE 263 MG/DL (70-110)
[2024-04-16 16:21] LABS: GLUCOMETER DEV NAME(LOC) 3EX.2; GLUCOSE,POINT OF CARE 394 MG/DL (70-110)
[2024-04-16 20:30] LABS: GLUCOMETER DEV NAME(LOC) 3EX.2; GLUCOSE,POINT OF CARE 199 MG/DL (70-110)
[2024-04-16 20:38] VITALS: BP 117/71; PULSE 96; RESP 18; TEMP 97.5; O2SAT 100
[2024-04-16] MEDS: INSULIN GLARGINE,HUM.REC.ANLOG 100 UNITS/ML SQ SCH (22:03)
[2024-04-17 06:00] LABS: GLUCOMETER DEV NAME(LOC) 3EX.2; GLUCOSE,POINT OF CARE 159 MG/DL (70-110)
[2024-04-17 08:00] VITALS: BP 98/60; PULSE 97; RESP 17; TEMP 97.6; O2SAT 100
[2024-04-17 09:30] VITALS: BP 123/70; PULSE 89
[2024-04-17 11:31] LABS: GLUCOMETER DEV NAME(LOC) 3EX.2; GLUCOSE,POINT OF CARE 213 MG/DL (70-110)
[2024-04-17 16:30] LABS: GLUCOMETER DEV NAME(LOC) 3EX.2; GLUCOSE,POINT OF CARE 415 MG/DL (70-110)
[2024-04-17] MEDS: INSULIN LISPRO 100 UNITS/ML SQ ONE (16:31)
[2024-04-17 18:36] LABS: GLUCOMETER DEV NAME(LOC) 3EX.2; GLUCOSE,POINT OF CARE 262 MG/DL (70-110)
[2024-04-17 20:31] LABS: GLUCOMETER DEV NAME(LOC) 3EX.2; GLUCOSE,POINT OF CARE 277 MG/DL (70-110)
[2024-04-17 21:14] VITALS: BP 123/82; PULSE 106; RESP 18; TEMP 98.4; O2SAT 97
[2024-04-18 05:50] LABS: GLUCOMETER DEV NAME(LOC) 3EX.2; GLUCOSE,POINT OF CARE 199 MG/DL (70-110)
[2024-04-18 08:57] LABS: ANION GAP 11 mmol/L (8-16); CALCIUM, TOTAL 8.5 mg/dL (8.8-10.5); CARBON DIOXIDE 25 mmol/L (22-29); CHLORIDE 104 mmol/L (98-107); CREATININE 0.86 mg/dL (0.60-1.30); GLOMERULAR FILTR. RATE CALC > 60 mL/min (>60); GLUCOSE,RANDOM 96 mg/dL (70-110); POTASSIUM 4.6 mmol/L (3.5-5.1); SODIUM SERUM 140 mmol/L (136-145); UREA NITROGEN, BLOOD 24 mg/dL (7-18)
[2024-04-18 10:14] VITALS: BP 106/66; PULSE 94; RESP 20; TEMP 97.6; O2SAT 99
[2024-04-18 11:45] LABS: GLUCOMETER DEV NAME(LOC) 3EX.2; GLUCOSE,POINT OF CARE 214 MG/DL (70-110)
[2024-04-18 17:00] LABS: GLUCOMETER DEV NAME(LOC) 3EX.2; GLUCOSE,POINT OF CARE 292 MG/DL (70-110)
[2024-04-18 22:00] VITALS: BP 123/71; PULSE 87; RESP 18; TEMP 97.7; O2SAT 9
[2024-04-18 22:20] LABS: GLUCOMETER DEV NAME(LOC) 3EX.2; GLUCOSE,POINT OF CARE 205 MG/DL (70-110)
[2024-04-19 07:00] LABS: GLUCOMETER DEV NAME(LOC) 3EX.2; GLUCOSE,POINT OF CARE 141 MG/DL (70-110)
[2024-04-19 09:00] VITALS: BP 102/62; PULSE 84; RESP 17; TEMP 97.7; O2SAT 98
[2024-04-19 11:40] LABS: GLUCOMETER DEV NAME(LOC) 3EX.2; GLUCOSE,POINT OF CARE 177 MG/DL (70-110)
[2024-04-19 17:31] LABS: GLUCOMETER DEV NAME(LOC) 3EX.2; GLUCOSE,POINT OF CARE 235 MG/DL (70-110)
[2024-04-19 20:41] LABS: GLUCOMETER DEV NAME(LOC) 3EX.2; GLUCOSE,POINT OF CARE 251 MG/DL (70-110)
[2024-04-19 22:10] VITALS: BP 115/76; PULSE 94; RESP 18; TEMP 97.7; O2SAT 100
[2024-04-20 06:21] LABS: GLUCOMETER DEV NAME(LOC) 3EX.2; GLUCOSE,POINT OF CARE 197 MG/DL (70-110)
[2024-04-20 09:39] VITALS: BP 106/68; PULSE 89; RESP 16; TEMP 97.6; O2SAT 99
[2024-04-20 11:51] LABS: GLUCOMETER DEV NAME(LOC) 3EX.2; GLUCOSE,POINT OF CARE 333 MG/DL (70-110)
[2024-04-20 16:26] LABS: GLUCOMETER DEV NAME(LOC) 3EX.2; GLUCOSE,POINT OF CARE 247 MG/DL (70-110)
[2024-04-20 20:30] LABS: GLUCOMETER DEV NAME(LOC) 3EX.2; GLUCOSE,POINT OF CARE 260 MG/DL (70-110)
[2024-04-20 21:07] VITALS: BP 114/77; PULSE 86; RESP 18; TEMP 97.4; O2SAT 97
[2024-04-21 06:21] LABS: GLUCOMETER DEV NAME(LOC) 3EX.2; GLUCOSE,POINT OF CARE 150 MG/DL (70-110)
[2024-04-21 09:43] VITALS: BP 132/88; PULSE 98; RESP 16; TEMP 97.5; O2SAT 98
[2024-04-21 11:41] LABS: GLUCOMETER DEV NAME(LOC) 3E.C; GLUCOSE,POINT OF CARE 256 MG/DL (70-110)
[2024-04-21 17:06] LABS: GLUCOMETER DEV NAME(LOC) 3EX.2; GLUCOSE,POINT OF CARE 358 MG/DL (70-110)
[2024-04-21 21:05] LABS: GLUCOMETER DEV NAME(LOC) 3EX.2; GLUCOSE,POINT OF CARE 200 MG/DL (70-110)
[2024-04-21 22:06] VITALS: BP 104/62; PULSE 97; RESP 18; TEMP 97.5
[2024-04-22 05:50] LABS: GLUCOMETER DEV NAME(LOC) 3EX.2; GLUCOSE,POINT OF CARE 225 MG/DL (70-110)
[2024-04-22 08:00] VITALS: BP 109/73; PULSE 85; RESP 18; TEMP 98
[2024-04-22 08:50] LABS: MAGNESIUM 1.9 mg/dL (1.80-2.40)
[2024-04-22 11:56] LABS: GLUCOMETER DEV NAME(LOC) 3EX.2; GLUCOSE,POINT OF CARE 321 MG/DL (70-110)
[2024-04-22 17:11] LABS: GLUCOMETER DEV NAME(LOC) 3EX.2; GLUCOSE,POINT OF CARE 267 MG/DL (70-110)
[2024-04-22 20:15] LABS: GLUCOMETER DEV NAME(LOC) 3EX.2; GLUCOSE,POINT OF CARE 207 MG/DL (70-110)
[2024-04-22 20:52] VITALS: BP 122/88; PULSE 99; RESP 16; TEMP 97.9; O2SAT 99
[2024-04-23 06:10] LABS: GLUCOMETER DEV NAME(LOC) 3E.C; GLUCOSE,POINT OF CARE 173 MG/DL (70-110)
[2024-04-23 09:00] VITALS: BP 104/68; PULSE 81; RESP 18; TEMP 97.5; O2SAT 100
[2024-04-23 11:35] LABS: GLUCOMETER DEV NAME(LOC) 3EX.2; GLUCOSE,POINT OF CARE 204 MG/DL (70-110)
[2024-04-23 17:10] LABS: GLUCOMETER DEV NAME(LOC) 3EX.2; GLUCOSE,POINT OF CARE 290 MG/DL (70-110)
[2024-04-23 20:21] LABS: GLUCOMETER DEV NAME(LOC) 3EX.2; GLUCOSE,POINT OF CARE 250 MG/DL (70-110)
[2024-04-23 21:33] VITALS: BP 125/82; PULSE 96; RESP 18; TEMP 97.2; O2SAT 100
[2024-04-24 06:16] LABS: GLUCOMETER DEV NAME(LOC) 3EX.2; GLUCOSE,POINT OF CARE 161 MG/DL (70-110)
[2024-04-24 10:16] VITALS: BP 102/72; PULSE 93; RESP 20; TEMP 98.2; O2SAT 98
[2024-04-24 12:15] LABS: GLUCOMETER DEV NAME(LOC) 3EX.2; GLUCOSE,POINT OF CARE 332 MG/DL (70-110)
[2024-04-24 16:46] LABS: GLUCOMETER DEV NAME(LOC) 3EX.2; GLUCOSE,POINT OF CARE 324 MG/DL (70-110)
[2024-04-24 20:36] LABS: GLUCOMETER DEV NAME(LOC) 3EX.2; GLUCOSE,POINT OF CARE 270 MG/DL (70-110)
[2024-04-24 23:08] VITALS: BP 124/82; PULSE 96; RESP 19; TEMP 97.8; O2SAT 97
[2024-04-25 06:50] LABS: GLUCOMETER DEV NAME(LOC) 3E.C; GLUCOSE,POINT OF CARE 88 MG/DL (70-110)
[2024-04-25 08:30] VITALS: BP 112/73; PULSE 80; RESP 17; TEMP 98.8; O2SAT 100
[2024-04-25 11:40] LABS: GLUCOMETER DEV NAME(LOC) 3E.C; GLUCOSE,POINT OF CARE 146 MG/DL (70-110)
[2024-04-25 17:25] LABS: GLUCOMETER DEV NAME(LOC) 3E.C; GLUCOSE,POINT OF CARE 366 MG/DL (70-110)
[2024-04-25 20:41] LABS: GLUCOMETER DEV NAME(LOC) 3E.C; GLUCOSE,POINT OF CARE 232 MG/DL (70-110)
[2024-04-25 22:26] VITALS: BP 107/79; PULSE 111; RESP 17; TEMP 97.8; O2SAT 99
[2024-04-26 05:51] LABS: GLUCOMETER DEV NAME(LOC) 3E.C; GLUCOSE,POINT OF CARE 187 MG/DL (70-110)
[2024-04-26 09:15] VITALS: BP 105/72; PULSE 111; RESP 18; TEMP 97.7; O2SAT 98
[2024-04-26 11:21] LABS: GLUCOMETER DEV NAME(LOC) 3E.C; GLUCOSE,POINT OF CARE 220 MG/DL (70-110)
[2024-04-26 17:15] LABS: GLUCOMETER DEV NAME(LOC) 3E.C; GLUCOSE,POINT OF CARE 230 MG/DL (70-110)
[2024-04-26 20:00] VITALS: BP 120/88; PULSE 97; RESP 18; TEMP 98.3; O2SAT 100
[2024-04-26 20:26] LABS: GLUCOMETER DEV NAME(LOC) 3E.C; GLUCOSE,POINT OF CARE 185 MG/DL (70-110)
[2024-04-27 05:40] LABS: GLUCOMETER DEV NAME(LOC) 3E.C; GLUCOSE,POINT OF CARE 203 MG/DL (70-110)
[2024-04-27 10:20] VITALS: BP 136/74; PULSE 87; RESP 19; TEMP 97.7; O2SAT 98
[2024-04-27 11:50] LABS: GLUCOMETER DEV NAME(LOC) 3E.C; GLUCOSE,POINT OF CARE 169 MG/DL (70-110)
[2024-04-27 16:46] LABS: GLUCOMETER DEV NAME(LOC) 3E.C; GLUCOSE,POINT OF CARE 200 MG/DL (70-110)
[2024-04-27 20:36] LABS: GLUCOMETER DEV NAME(LOC) 3E.C; GLUCOSE,POINT OF CARE 222 MG/DL (70-110)
[2024-04-27 22:47] VITALS: BP 114/78; PULSE 107; RESP 18; TEMP 97.7; O2SAT 99
[2024-04-28 06:26] LABS: GLUCOMETER DEV NAME(LOC) 3E.C; GLUCOSE,POINT OF CARE 220 MG/DL (70-110)
[2024-04-28 09:02] VITALS: BP 110/69; PULSE 78; RESP 18; TEMP 98.7; O2SAT 100
[2024-04-28 11:46] LABS: GLUCOMETER DEV NAME(LOC) 3E.C; GLUCOSE,POINT OF CARE 349 MG/DL (70-110)
[2024-04-28 16:50] LABS: GLUCOMETER DEV NAME(LOC) 3E.C; GLUCOSE,POINT OF CARE 316 MG/DL (70-110)
[2024-04-28 20:31] LABS: GLUCOMETER DEV NAME(LOC) 3E.C; GLUCOSE,POINT OF CARE 237 MG/DL (70-110)
[2024-04-28 22:52] VITALS: BP 134/86; PULSE 108; RESP 18; TEMP 97.6; O2SAT 100
[2024-04-29 06:31] LABS: GLUCOMETER DEV NAME(LOC) 3E.C; GLUCOSE,POINT OF CARE 204 MG/DL (70-110)
[2024-04-29 10:32] VITALS: BP 102/65; PULSE 80; RESP 16; TEMP 97.8; O2SAT 97
[2024-04-29 11:56] LABS: GLUCOMETER DEV NAME(LOC) 3E.C; GLUCOSE,POINT OF CARE 335 MG/DL (70-110)
[2024-04-29 16:31] LABS: GLUCOMETER DEV NAME(LOC) 3E.C; GLUCOSE,POINT OF CARE 215 MG/DL (70-110)
[2024-04-29 20:45] LABS: GLUCOMETER DEV NAME(LOC) 3E.C; GLUCOSE,POINT OF CARE 263 MG/DL (70-110)
[2024-04-29 23:38] VITALS: BP 123/83; PULSE 101; RESP 18; TEMP 97.7; O2SAT 100
[2024-04-30 06:15] LABS: GLUCOMETER DEV NAME(LOC) 3E.C; GLUCOSE,POINT OF CARE 275 MG/DL (70-110)
[2024-04-30 12:11] LABS: GLUCOMETER DEV NAME(LOC) 3E.C; GLUCOSE,POINT OF CARE 246 MG/DL (70-110)
[2024-04-30 16:16] VITALS: BP 111/69; PULSE 81; RESP 16; TEMP 97.2; O2SAT 100
[2024-04-30 17:46] LABS: GLUCOMETER DEV NAME(LOC) 3E.C; GLUCOSE,POINT OF CARE 342 MG/DL (70-110)
[2024-04-30 20:21] LABS: GLUCOMETER DEV NAME(LOC) 3E.C; GLUCOSE,POINT OF CARE 257 MG/DL (70-110)
[2024-04-30 21:28] VITALS: BP 130/82; PULSE 95; RESP 18; TEMP 98
[2024-05-01 05:50] LABS: GLUCOMETER DEV NAME(LOC) 3E.C; GLUCOSE,POINT OF CARE 252 MG/DL (70-110)
[2024-05-01 09:00] VITALS: BP 106/72; PULSE 91; RESP 16; TEMP 97.9; O2SAT 100
[2024-05-01] MEDS ORDERED: INSULIN LISPRO 100 UNITS/ML SQ ONE (11:45)
[2024-05-01 11:50] LABS: GLUCOMETER DEV NAME(LOC) 3E.C; GLUCOSE,POINT OF CARE 444 MG/DL (70-110)
[2024-05-01] MEDS: INSULIN LISPRO 100 UNITS/ML SQ ONE ×2 (11:54→18:23)
[2024-05-01 18:01] LABS: GLUCOMETER DEV NAME(LOC) 3E.C; GLUCOSE,POINT OF CARE 423 MG/DL (70-110)
[2024-05-01 20:16] LABS: GLUCOMETER DEV NAME(LOC) 3E.C; GLUCOSE,POINT OF CARE 166 MG/DL (70-110)
[2024-05-01] MEDS: INSULIN GLARGINE,HUM.REC.ANLOG 100 UNITS/ML SQ SCH (21:17)
[2024-05-01 21:38] VITALS: BP 113/72; PULSE 106; RESP 18; TEMP 98.2; O2SAT 100
[2024-05-02 06:40] LABS: GLUCOMETER DEV NAME(LOC) 3E.C; GLUCOSE,POINT OF CARE 217 MG/DL (70-110)
[2024-05-02 09:00] VITALS: BP 101/66; PULSE 87; RESP 16; TEMP 97.5; O2SAT 100
[2024-05-02 11:31] LABS: GLUCOMETER DEV NAME(LOC) 3E.C; GLUCOSE,POINT OF CARE 208 MG/DL (70-110)
[2024-05-02 16:36] LABS: GLUCOMETER DEV NAME(LOC) 3EX.2; GLUCOSE,POINT OF CARE 231 MG/DL (70-110)
[2024-05-02 20:27] LABS: GLUCOMETER DEV NAME(LOC) 3E.C; GLUCOSE,POINT OF CARE 207 MG/DL (70-110)
[2024-05-02 21:19] VITALS: BP 102/70; PULSE 91; RESP 18; TEMP 97.8; O2SAT 100
[2024-05-03 06:51] LABS: GLUCOMETER DEV NAME(LOC) 3E.C; GLUCOSE,POINT OF CARE 175 MG/DL (70-110)
[2024-05-03 10:20] VITALS: BP 99/64; PULSE 81; RESP 18; TEMP 97.9; O2SAT 100
[2024-05-03 12:25] LABS: GLUCOMETER DEV NAME(LOC) 3E.C; GLUCOSE,POINT OF CARE 353 MG/DL (70-110)
[2024-05-03 16:25] LABS: GLUCOMETER DEV NAME(LOC) 3E.C; GLUCOSE,POINT OF CARE 343 MG/DL (70-110)
[2024-05-03 20:21] LABS: GLUCOMETER DEV NAME(LOC) 3E.C; GLUCOSE,POINT OF CARE 311 MG/DL (70-110)
[2024-05-03 21:30] VITALS: BP 132/93; PULSE 89; RESP 18; TEMP 98; O2SAT 100
[2024-05-04 06:45] LABS: GLUCOMETER DEV NAME(LOC) 3EX.2; GLUCOSE,POINT OF CARE 246 MG/DL (70-110)
[2024-05-04 09:47] VITALS: BP 111/74; PULSE 86; TEMP 98; O2SAT 17
[2024-05-04 11:41] LABS: GLUCOMETER DEV NAME(LOC) 3EX.2; GLUCOSE,POINT OF CARE 356 MG/DL (70-110)
[2024-05-04 16:35] LABS: GLUCOMETER DEV NAME(LOC) 3EX.2; GLUCOSE,POINT OF CARE 270 MG/DL (70-110)
[2024-05-04 20:16] LABS: GLUCOMETER DEV NAME(LOC) 3EX.2; GLUCOSE,POINT OF CARE 248 MG/DL (70-110)
[2024-05-04 22:22] VITALS: BP 124/89; PULSE 94; RESP 18; TEMP 97.8; O2SAT 100
[2024-05-05 06:50] LABS: GLUCOMETER DEV NAME(LOC) 3EX.2; GLUCOSE,POINT OF CARE 227 MG/DL (70-110)
[2024-05-05 11:21] LABS: GLUCOMETER DEV NAME(LOC) 3EX.2; GLUCOSE,POINT OF CARE 242 MG/DL (70-110)
[2024-05-05 12:49] VITALS: BP 114/76; PULSE 75; RESP 18; TEMP 98; O2SAT 98
[2024-05-05 17:11] LABS: GLUCOMETER DEV NAME(LOC) 3EX.2; GLUCOSE,POINT OF CARE 405 MG/DL (70-110)
[2024-05-05] MEDS: INSULIN LISPRO 100 UNITS/ML SQ ONE (17:26)
[2024-05-05 21:01] LABS: GLUCOMETER DEV NAME(LOC) 3EX.2; GLUCOSE,POINT OF CARE 307 MG/DL (70-110)
[2024-05-05] MEDS: INSULIN GLARGINE,HUM.REC.ANLOG 100 UNITS/ML SQ SCH (21:04)
[2024-05-05 21:51] VITALS: BP 119/78; PULSE 79; RESP 18; TEMP 97.6; O2SAT 97
[2024-05-06 06:16] LABS: GLUCOMETER DEV NAME(LOC) 3EX.2; GLUCOSE,POINT OF CARE 259 MG/DL (70-110)
[2024-05-06 09:00] VITALS: BP 113/68; PULSE 64; RESP 18; TEMP 97.9; O2SAT 100
[2024-05-06 11:36] LABS: GLUCOMETER DEV NAME(LOC) 3EX.2; GLUCOSE,POINT OF CARE 362 MG/DL (70-110)
[2024-05-06] MEDS: INSULIN LISPRO 100 UNITS/ML SQ ONE (16:49)
[2024-05-06 17:10] LABS: GLUCOMETER DEV NAME(LOC) 3EX.2; GLUCOSE,POINT OF CARE 400 MG/DL (70-110)
[2024-05-06 20:26] LABS: GLUCOMETER DEV NAME(LOC) 3EX.2; GLUCOSE,POINT OF CARE 239 MG/DL (70-110)
[2024-05-06 20:47] VITALS: BP 117/76; PULSE 74; RESP 18; TEMP 98.1
[2024-05-07 05:45] LABS: GLUCOMETER DEV NAME(LOC) 3EX.2; GLUCOSE,POINT OF CARE 233 MG/DL (70-110)
[2024-05-07 09:41] VITALS: BP 112/73; PULSE 78; RESP 18; TEMP 98; O2SAT 99
[2024-05-07 11:45] LABS: GLUCOMETER DEV NAME(LOC) 3EX.2; GLUCOSE,POINT OF CARE 249 MG/DL (70-110)
[2024-05-07 16:50] LABS: GLUCOMETER DEV NAME(LOC) 3EX.2; GLUCOSE,POINT OF CARE 305 MG/DL (70-110)
[2024-05-07 20:15] LABS: GLUCOMETER DEV NAME(LOC) 3EX.2; GLUCOSE,POINT OF CARE 297 MG/DL (70-110)
[2024-05-07 20:36] VITALS: BP 116/77; PULSE 110; RESP 18; TEMP 97.7; O2SAT 98
[2024-05-08 06:35] LABS: GLUCOMETER DEV NAME(LOC) 3EX.2; GLUCOSE,POINT OF CARE 218 MG/DL (70-110)
[2024-05-08 08:00] VITALS: BP 114/74; PULSE 99; RESP 16; TEMP 97.9
[2024-05-08 12:11] LABS: GLUCOMETER DEV NAME(LOC) 3EX.2; GLUCOSE,POINT OF CARE 382 MG/DL (70-110)
[2024-05-08 17:30] LABS: GLUCOMETER DEV NAME(LOC) 3EX.2; GLUCOSE,POINT OF CARE 346 MG/DL (70-110)
[2024-05-08] MEDS ORDERED: TRAZ-252 PO (18:00)
[2024-05-08] MEDS ORDERED: ARIP10TA38 PO (18:00)
[2024-05-08] MEDS ORDERED: LOSA-417 PO (18:00)
[2024-05-08] MEDS ORDERED: MIRT-149 PO (18:00)
[2024-05-08 20:35] LABS: GLUCOMETER DEV NAME(LOC) 3EX.2; GLUCOSE,POINT OF CARE 291 MG/DL (70-110)
[2024-05-08 21:46] VITALS: BP 114/80; PULSE 103; RESP 18; TEMP 98.3; O2SAT 100
[2024-05-09 06:41] LABS: GLUCOMETER DEV NAME(LOC) 3EX.2; GLUCOSE,POINT OF CARE 213 MG/DL (70-110)
[2024-05-09 09:38] VITALS: BP 112/71; PULSE 86; RESP 17; TEMP 97.7; O2SAT 99
[2024-05-09 11:16] LABS: GLUCOMETER DEV NAME(LOC) 3EX.2; GLUCOSE,POINT OF CARE 315 MG/DL (70-110)
[2024-05-09 17:10] LABS: GLUCOMETER DEV NAME(LOC) 3EX.2; GLUCOSE,POINT OF CARE 328 MG/DL (70-110)
[2024-05-09 20:55] LABS: GLUCOMETER DEV NAME(LOC) 3EX.2; GLUCOSE,POINT OF CARE 265 MG/DL (70-110)
[2024-05-09 22:41] VITALS: BP 135/89; PULSE 98; RESP 18; TEMP 97.7; O2SAT 100
[2024-05-10 06:41] LABS: GLUCOMETER DEV NAME(LOC) 3EX.2; GLUCOSE,POINT OF CARE 274 MG/DL (70-110)
[2024-05-10 08:00] VITALS: BP 111/69; PULSE 71; RESP 17; TEMP 98
[2024-05-10 13:00] LABS: GLUCOMETER DEV NAME(LOC) 3EX.2; GLUCOSE,POINT OF CARE 202 MG/DL (70-110)
[2024-05-10 17:01] LABS: GLUCOMETER DEV NAME(LOC) 3EX.2; GLUCOSE,POINT OF CARE 208 MG/DL (70-110)
[2024-05-10 20:15] LABS: GLUCOMETER DEV NAME(LOC) 3EX.2; GLUCOSE,POINT OF CARE 260 MG/DL (70-110)
[2024-05-10 22:40] VITALS: BP 125/92; RESP 18; TEMP 97.9; O2SAT 100
[2024-05-11 06:41] LABS: GLUCOMETER DEV NAME(LOC) 3EX.2; GLUCOSE,POINT OF CARE 201 MG/DL (70-110)
[2024-05-11 08:41] VITALS: BP 104/69; PULSE 65; RESP 18; TEMP 97.8; O2SAT 97
[2024-05-11 11:35] LABS: GLUCOMETER DEV NAME(LOC) 3EX.2; GLUCOSE,POINT OF CARE 331 MG/DL (70-110)
[2024-05-11 11:58] LABS: COVID AG,FIA SOURCE NASAL SWAB
[2024-05-11 12:31] LABS: SARS-COV2 (COVID) ANTIGEN,FIA Negative (Negative)
[2024-05-11 17:35] LABS: GLUCOMETER DEV NAME(LOC) 3EX.2; GLUCOSE,POINT OF CARE 337 MG/DL (70-110)
[2024-05-11 20:11] LABS: GLUCOMETER DEV NAME(LOC) 3EX.2; GLUCOSE,POINT OF CARE 227 MG/DL (70-110)
[2024-05-11 21:20] VITALS: BP 122/84; PULSE 100; RESP 18; TEMP 97.8; O2SAT 100
[2024-05-12 06:21] LABS: GLUCOMETER DEV NAME(LOC) 3EX.2; GLUCOSE,POINT OF CARE 240 MG/DL (70-110)
[2024-05-12 08:51] VITALS: BP 118/83; PULSE 92; RESP 18; TEMP 97.5; O2SAT 97
== END 2024-05-12 11:42 | DRG 750 ==
LOC: UNDOADMIN 04-08 01:12 → 3EI 04-08 01:12
PROVIDERS: ADMIT Psychiatry & Neurology Psychiatry; ATTEND Psychiatry & Neurology Psychiatry
PROC: GZHZZZZ Group Psychotherapy (ICD-10-PCS; principal; 2024-04-08)
PROC: GZ52ZZZ Individual Psychotherapy, Cognitive (ICD-10-PCS; 2024-04-08)
DX: F25.1 Schizoaffective disorder, depressive type (principal); E11.9 Type 2 diabetes mellitus without complications; I10 Essential (primary) hypertension; J45.909 Unspecified asthma, uncomplicated; Z20.822 Contact with and (suspected) exposure to COVID-19; G47.00 Insomnia, unspecified; Z59.00 Homelessness unspecified; Z79.4 Long term (current) use of insulin; Z79.899 Other long term (current) drug therapy
CPT/HCPCS: 80048; 80061; 82962; 83036; 83735; 84100; 84443; 85025; J1815